=== PATIENT | female | born 1955 | race Caucasian/White ===

== ENCOUNTER → 2017-01-27 | Day surgery (SDC) | payer OTHER ==
--- NOTE | 2017-01-15 14:29 | HP ---
HISTORY OF PRESENT ILLNESS: Ms. Ovalle is a 60-year-old woman who presents for evaluation in o ur clinic with bilateral lower extremity radiculopathy, a handful of different patterns, and also hamlin ffers from a great deal of midline low back pain. We have evaluated this with her before. She has attempted conservative treatments that have yet to work. She returns now to discuss possible treatm ent options. She is yet to have any imaging. PAST MEDICAL HISTORY: Diabetes, stroke, obesity, headache, atrial fibrillation, glaucoma, sleep director design ea, hiatal hernia and dyspnea. PAST SURGICAL HISTORY: Hysterectomy, cholecystectomy, heart monitor, right shoulder surgery, left s houlder surgery, left knee, tubal ligation, right total knee replacement. CURRENT MEDICATIONS: Spironolactone, aspirin, metformin, Victoza, vitamin D, cetirizine, sertraline , Fosamax, atenolol, Enablex, pantoprazole, clopidogrel, pravastatin, lisinopril, Ropinirole, Choles tyramine, Spiriva, Advair, ipratropium bromide, albuterol, Protonix, Bactrim, Crestor, Nexium, carve dilol, oxybutynin, Lasix. ALLERGIES: PREDNISONE, DOXYCYCLINE, MAGNESIUM, CLINDAMYCIN, and ADHESIVES. PHYSICAL EXAMINATION: NEUROLOGIC: Patient is alert and oriented x3. Gait is severely antalgic. Lower extremity motor ex am is normal. She has a sensory disturbance in the upper buttocks bilaterally. ASSESSMENT: Lumbar radiculopathy and lumbar back pain. PLAN: At this time, I would like to obtain a CT myelogram of the lumbar spine and then have her yadi k to review afterwards.
[2017-01-20 08:12] VITALS: BMI 45.5
[~2017-01-27] MED LIST: FLU VACC QS2017-18 36 mo. & older 0.5 ML SYRINGE IM ONE; Iopamidol-M 300 61% 15 ML VIAL ONE
[2017-01-27 07:24] VITALS: TEMP 97.6
--- NOTE | 2017-01-27 09:19 | RAD ---
THORACIC SPINE MYELOGRAM: LUMBAR SPINE MYELOGRAM: 01/27/2017 HISTORY: Radiculopathy. FINDINGS: Informed consent for myelogram obtained prior to the procedure. Aircraft Instrument Tester frontal and lateral imaging of the thoracic spine and lumbar spine provided. Anterior diskect manas and fusion hardware is present at C5-C6/C6-C7. Thoracic spine imaging demonstrates multilevel d isk space narrowing, most prominent in the upper to mid thoracic spine, with associated anterior ost eophyte formation. A loop recorder overlies the left chest wall. Clips in the right upper quadrant are noted, suggesting a prior cholecystectomy. Imaging of the lum bar spine demonstrates multilevel disk space narrowing and anterior osteophyte formation. No kell listhesis or retrolisthesis is seen. The patient was placed in the oblique prone position on the fluoroscopic table, and the skin overlyi ng the lumbar spine was prepped and draped in the normal sterile fashion. The skin overlying the L3 -L4 region was anesthetized with 1% buffered Lidocaine. With intermittent fluoroscopic guidance, a 20 gauge spinal needle was advanced into the thecal sac and removal of the stylet yielded clear cere brospinal fluid. Subsequently, approximately 12 mL of Isovue 240 was injected, outlining to the cauda equina and filling the thecal sac. The needle was removed. The patient's head was tilte d down, to extend contrast media into the thoracic region. The patient tolerated the procedure well . The patient was sent to the CT scanner for a CT myelogram of the thoracic and lumbar spine to fol low. IMPRESSION: 1. Successful thoracic spine and lumbar spine myelogram. 2. Degenerative and postoperative changes, as detailed above. POS: [facility]
--- NOTE | 2017-01-27 10:24 | CT ---
CT MYELOGRAM THORACIC SPINE: 01/27/2017 HISTORY: Thoracic pain and radiculopathy. COMPARISON: None. TECHNIQUE: Following the intrathecal administration of iodinated contrast media, axial CT imaging is obtained a t 3.75 mm intervals, from the cervicothoracic junction through the upper lumbar spine. Coronal and sagittal reformatted imaging obtained. FINDINGS: Incompletely imaged anterior diskectomy and fusion hardware is present at the C6-C7 level. There is good opacification of the thecal sac. The thoracic cord demonstrates normal location and c aliber. There is no anterolisthesis or retrolisthesis noted within the thoracic spine. There is no central canal stenosis within the thoracic spine. C7-T1: No central canal or neural foraminal stenosis. T1-T2: No central canal or neural foraminal stenosis. T2-T3: Mild anterior osteophyte formation. T4-T5: Mild anterior osteophyte formation. T5-T6: Mild right facet hypertrophy with mild right neural foraminal stenosis. : Anterior osteophytes formation noted, right of midline. No osseous cause of significant c entral anal or neural foraminal stenosis. T6-T7: There is disk space narrowing and anterior osteophyte formation. No osseous cause of signif icant central canal or neural foraminal stenosis. T7-T8: Disk space narrowing and anterior osteophyte formation. No osseous cause of significant dante tral canal or neural foraminal stenosis. T8-T9: There is disk space narrowing and anterior osteophyte formation with no osseous cause of sig nificant central canal or neural foraminal stenosis. T9-T10: Disk space narrowing and anterior osteophyte formation. No osseous cause of significant ce ntral canal or neural foraminal stenosis. T10-T11: Disk space narrowing and anterior osteophyte formation noted. Mild right facet hypertroph y with no significant central canal or neural foraminal stenosis. T11-T12: Disk space narrowing and anterior osteophyte formation with no significant central canal o r neural foraminal stenosis. Lateral vacuum disk noted on the right. T12-L1: No osseous cause of significant central canal or neural foraminal stenosis. No acute osseo us abnormality. The imaged lung parenchyma appears grossly unremarkable. IMPRESSION: Multilevel disk space narrowing and anterior osteophyte formation with no significant central canal or neural foraminal stenosis seen within the thoracic spine. POS: [facility]
--- NOTE | 2017-01-27 11:14 | CT ---
LUMBAR SPINE CT MYELOGRAM: 01/27/2017 HISTORY: Pain and lumbar radiculopathy. COMPARISON: 06/30/2011 TECHNIQUE: Following the intrathecal administration of iodinated contrast media, axial CT imaging at 2.5 mm int ervals obtained from the lower thoracic spine through the inferior aspect of the sacrum. Coronal an d sagittal reformatted imaging obtained. FINDINGS: The imaged nonosseous structures appear grossly unremarkable. There are moderate degenerative nogueira es involving the bilateral sacroiliac joints. The conus medullaris terminates at the L1-L2 level. T12-L1: There is bilateral facet hypertrophy and anterior osteophyte formation with no significant central canal or neural foraminal stenosis. L1-L2: There is disk space narrowing and mild disk bulge. There is anterior osteophyte formation a nd mild bilateral facet hypertrophy with no significant central canal or neural foraminal stenosis. L2-L3: There is anterior osteophyte formation and bilateral facet hypertrophy with no significant c entral canal or neural foraminal stenosis. L3-L4: Mild bilateral facet hypertrophy and hypertrophy of the ligamentum flavum. Mild bilateral n eural foraminal stenosis. No significant central canal stenosis. L4-L5: Bilateral facet hypertrophy and hypertrophy of the ligamentum flavum noted. Mild/moderate b ilateral neural foraminal stenosis, left greater than right. No significant central canal stenosis. L5-S1: Mild bilateral facet hypertrophy with no significant central canal o neural foraminal stenos is. No acute fracture. No worrisome lytic or blastic bone lesion. IMPRESSION: 1. Degenerative changes within the lumbar spine. 2. No significant central canal stenosis. 3. Lower lumbar spine facet disease and associated neural foraminal stenosis, as described above. POS: [facility]
== END ==
LOC: RAD 06:46
PROVIDERS: ATTEND Neurological Surgery
PROC: B01B1ZZ Fluoroscopy of Spinal Cord using Low Osmolar Contrast (ICD-10-PCS; principal; 2017-01-27)
DX: M54.16 Radiculopathy, lumbar region (principal); E11.9 Type 2 diabetes mellitus without complications; I48.91 Unspecified atrial fibrillation; H40.9 Unspecified glaucoma; G47.30 Sleep apnea, unspecified; Z98.890 Other specified postprocedural states; E66.9 Obesity, unspecified; Z68.42 Body mass index [BMI] 45.0-49.9, adult; Z88.1 Allergy status to other antibiotic agents; Z88.8 Allergy status to other drugs, medicaments and biological substances; Z91.048 Other nonmedicinal substance allergy status; Z79.82 Long term (current) use of aspirin; Z79.84 Long term (current) use of oral hypoglycemic drugs; Z79.899 Other long term (current) drug therapy; Z90.710 Acquired absence of both cervix and uterus; Z90.49 Acquired absence of other specified parts of digestive tract; Z96.651 Presence of right artificial knee joint; Z87.891 Personal history of nicotine dependence; Z86.73 Personal history of transient ischemic attack (TIA), and cerebral infarction without residual deficits
CPT/HCPCS: 62305; 72129; 72132

== ENCOUNTER 2017-01-29 10:38 | Emergency (ER) | payer OTHER | END 2017-01-29 14:41 | disposition left against medical advice (07) | LOC: ERS 10:38 | DX: Z53.21 Procedure and treatment not carried out due to patient leaving prior to being seen by health care provider (principal) ==

== ENCOUNTER 2017-06-04 07:27 | Day surgery (SDC) | payer OTHER ==
[2017-06-03 10:01] VITALS: BMI 48.6
--- NOTE | 2017-06-04 16:47 | OP ---
DATE OF PROCEDURE: 06/04/2017 PREOPERATIVE DIAGNOSIS: Dysphagia. OPERATIVE NOTE: Informed consent was obtained from the patient. She was sedated with total intraven ous anesthesia. The bite block was placed and the endoscope was advanced easily to the second portio n of the duodenum and retroflexion was performed in the stomach. The esophagus appeared normal overa ll. An 18 mm Savary dilator was passed over a guidewire and this did create a very small tear in the proximal esophagus. The stomach had 8-10 mm gastric polyps, which were biopsied. These appeared be nign and are likely hyperplastic polyps. Retroflexed views in the stomach were normal. The pylorus and first and second portions of the duodenum were normal. IMPRESSION: 1. Slight upper esophageal stricture dilated to 18 mm with a Savary dilator over a guidewire. There was a slight tear at the dilation site. 2. 8-10 mm gastric antral polyps biopsied. These are likely hyperplastic or less likely fundic glan d polyps. 3. Otherwise normal esophagogastroduodenoscopy. RECOMMENDATIONS: 1. Await histopathology. 2. Proton pump inhibitor daily. 3. Follow up in GI clinic in 2-4 weeks. 4. The gastric biopsies should not require further intervention unless adenomatous changes are ident ified.
== END 2017-06-04 11:30 | disposition home or self-care (01) ==
LOC: SDC 07:27
PROVIDERS: ATTEND Internal Medicine Gastroenterology
PROC: 0D758ZZ Dilation of Esophagus, Via Natural or Artificial Opening Endoscopic (ICD-10-PCS; principal; 2017-06-04)
PROC: 0DB68ZX Excision of Stomach, Via Natural or Artificial Opening Endoscopic, Diagnostic (ICD-10-PCS; principal; 2017-06-04)
PROC: 0DB58ZX Excision of Esophagus, Via Natural or Artificial Opening Endoscopic, Diagnostic (ICD-10-PCS; principal; 2017-06-04)
DX: K20.9 Esophagitis, unspecified (principal); K31.7 Polyp of stomach and duodenum; K22.2 Esophageal obstruction; I10 Essential (primary) hypertension; G47.30 Sleep apnea, unspecified; M19.90 Unspecified osteoarthritis, unspecified site; E11.9 Type 2 diabetes mellitus without complications; E78.5 Hyperlipidemia, unspecified; E66.9 Obesity, unspecified; Z68.42 Body mass index [BMI] 45.0-49.9, adult; Z88.1 Allergy status to other antibiotic agents; Z91.048 Other nonmedicinal substance allergy status; Z88.8 Allergy status to other drugs, medicaments and biological substances; Z98.890 Other specified postprocedural states
CPT/HCPCS: 88305; 88312; 88313

== ENCOUNTER 2017-07-19 08:24 | Outpatient (CLI) | payer OTHER ==
--- NOTE | 2017-07-20 14:26 | RAD ---
MODIFIED BARIUM SWALLOW: History: Dysphagia. Difficulty swallowing. FINDINGS: Exam was performed by speech pathology with multiple consistencies. Video review is available and dem onstrates good bolus formation and retropulsion. There is good initiation of swallowing. Flash penetr ation is demonstrated with some consistencies. No kae aspiration is apparent. Moderate pooling with the vallecula and pyriform sinuses. Contrast is held beneath the tongue. Indentation upon the posterior aspect of the upper esophagus is very mild and has the appearance of o rthopedic hardware. No evidence of obstruction. The esophagus below the level of the hypopharynx was not visualized. Fluoro time = 20 seconds. Please separate detailed report by speech pathology. POS: [facility]
== END 2017-07-19 08:25 | disposition home or self-care (01) ==
PROVIDERS: ATTEND Internal Medicine Gastroenterology
DX: R13.12 Dysphagia, oropharyngeal phase (principal); K21.9 Gastro-esophageal reflux disease without esophagitis
CPT/HCPCS: 74230; G8996-GN-CI; G8997-GN-CI; G8998-GN-CI

== ENCOUNTER 2017-12-01 11:30 | Inpatient (IN) | payer OTHER ==
[2017-12-09] MEDS ORDERED: Sodium Chloride 0.9% 100 ML ONE (06:12)
[2017-12-09] MEDS ORDERED: CEFAZOLIN/Water 2 GM/20 ML SYRINGE ONE (06:12)
[2017-12-09] MEDS ORDERED: Fentanyl 100 MCG/2 ML VIAL ONE ×2 (06:38→10:00)
[2017-12-09] MEDS ORDERED: Midazolam HCl 2 mg/2 ml Vial ONE (06:38)
[2017-12-09] MEDS ORDERED: Furosemide 20 MG TAB PO PRN (06:56)
[2017-12-09] MEDS ORDERED: traMADol HCl 50 MG TAB PO PRN ×4 (06:57→07:23)
[2017-12-09] MEDS ORDERED: Ondansetron HCl/PF 4 MG/2 ML Vial IVP PRN ×2 (07:23→09:47)
[2017-12-09] MEDS ORDERED: Ropivacaine 0.2% 550 ML 550 ML NERVE BLCK SCH (07:23)
[2017-12-09] MEDS ORDERED: HYDROcodone/Acetaminophen 10/325 mg Tablet PO PRN (07:23)
[2017-12-09] MEDS ORDERED: Promethazine HCl 25 MG/ML VIAL IM PRN ×2 (07:23→09:47)
[2017-12-09] MEDS ORDERED: Ketorolac Tromethamine 30 MG/ML VIAL IVP PRN (07:23)
[2017-12-09] MEDS ORDERED: Zolpidem Tartrate 5 MG TAB PO PRN (07:23)
[2017-12-09] MEDS ORDERED: Fentanyl 100 MCG/2 ML VIAL IV PRN (07:24)
[2017-12-09] MEDS ORDERED: Loratadine 10 MG TAB PO PRN (07:45)
[2017-12-09] MEDS ORDERED: Spironolactone 25 MG TAB PO SCH ×3 (08:00→14:45)
[2017-12-09] MEDS ORDERED: Promethazine HCl 25 MG/ML VIAL SLOW IVP PRN (09:47)
--- NOTE | 2017-12-09 11:00 | OP ---
DATE OF PROCEDURE: 12/09/2017 PREOPERATIVE DIAGNOSIS: Rotator cuff arthropathy, right shoulder. POSTOPERATIVE DIAGNOSES: Rotator cuff arthropathy, right shoulder. PROCEDURE:Reverse Total Shoulder, screw removal, Biceps tenotomy. SURGEON: Efra Cary M.D. SENIOR LEAD JAVA DEVELOPER: Logan Orr PA-C. BLOOD LOSS: 150 mL. SPECIMEN: None. DRAINS: None. COMPLICATIONS: None. IMPLANTS USED: Right Tornier flexed 3B stem, a +0 high offset metaphysis with a +6 poly, 25 mm baseplate and 4 screws. NARRATIVE REPORT: The patient was taken to the operating where general anesthesia induced. The patient was placed in a beach chair position. After prepping and draping and receiving vancomycin and Ancef, a standard deltopectoral approach was made. Dissection carried down to the conjoint tendon which was retracted medially. I retracted the subscapularis after sizing it off the bone. The humeral head was cut and a screw was removed from the proximal humerus. The biceps tendon was very attenuated and I just ended up doing a biceps tenodesis. The humerus was prepared up to 3B stem with the implants as shown then exposed the glenoid circumferentially, tried to keep my central lug hole a little bit inferior and try to create a little bit of inferior tilt for it as well as I reamed and the baseplate was inserted with excellent technique with great purchase with the screws. The glenosphere was deployed without difficulty. The humerus trial was removed. Irrigation was performed. I placed a cottony Dacron sutures through the humerus. I then implanted the permanent implant. The shoulder was reduced with good stability throughout a range of motion, repaired the subscapularis back to bone with cottony Dacron suture. There was no rotator cuff to repair. Irrigation was performed. Deltoid was repaired with 0 Vicryl, subcu with 2-0 Vicryl, and the skin was closed with jones. Sterile dressings applied. SHEREE
[2017-12-09] MEDS: Sodium Chloride 0.9% 1,000 ML IV SCH (11:43)
[2017-12-09] MEDS: metFORMIN 500 MG TAB PO SCH ×2 (11:44→17:18)
[2017-12-09] MEDS: Atenolol 25 MG TAB PO SCH (17:02)
[2017-12-09] MEDS: Aspirin 81 mg Enteric Coated Tablet PO SCH (17:03)
[2017-12-09] MEDS: CEFAZOLIN/Water 2 GM/20 ML SYRINGE SLOW IVP SCH (17:08)
[2017-12-09] MEDS: Spironolactone 25 MG TAB PO SCH (17:18)
[2017-12-09] MEDS ORDERED: Vancomycin HCl 1.5 GM in Sodium Chloride 0.9% 250 ML 300 ML IVPB SCH (18:00)
[2017-12-09 18:47] VITALS: BMI 50.8
[2017-12-09] MEDS ORDERED: Atorvastatin Calcium 10 MG TAB PO SCH (21:00)
[2017-12-09] MEDS: Oxybutynin 5 MG TAB PO SCH (21:03)
[2017-12-10] MEDS: Sodium Chloride 0.9% 1,000 ML IV SCH (00:07)
[2017-12-10] MEDS: CEFAZOLIN/Water 2 GM/20 ML SYRINGE SLOW IVP SCH (00:08)
[2017-12-10] MEDS: HYDROcodone/Acetaminophen 10/325 mg Tablet PO PRN ×2 (00:24→08:09)
[2017-12-10] MEDS: Atenolol 25 MG TAB PO SCH (08:07)
[2017-12-10] MEDS: Spironolactone 25 MG TAB PO SCH (08:07)
[2017-12-10] MEDS: Oxybutynin 5 MG TAB PO SCH (08:08)
[2017-12-10] MEDS: Aspirin 81 mg Enteric Coated Tablet PO SCH (08:09)
[2017-12-10] MEDS: metFORMIN 500 MG TAB PO SCH (08:09)
[2017-12-10] MEDS ORDERED: Enoxaparin Sodium 30 MG/0.3 ML SYRINGE SC SCH (09:00)
--- NOTE | 2017-12-10 09:42 | PDOC.PN ---
- Subjective Encounter Start Date: 12/09/17 Encounter Start Time: 13:00 Subjective: pt up in bed no complains - Objective Vital Signs & Weight: Vital Signs (12 hours) Temp Pulse Resp BP BP Pulse Ox 12/10/17 08:07 70 124/70 12/10/17 08:00 98.3 F 73 16 124/70 92 L 12/10/17 05:01 97.9 F 70 18 114/61 94 L 12/10/17 03:08 70 16 94 L 12/10/17 00:04 98.3 F 73 20 122/76 97 Weight Weight 315 lb I&O: 12/09/17 12/10/17 12/11/17 06:59 06:59 06:59 Intake Total 2270 Balance 2270 Phys Exam - Physical Examination Neck: no nodes, no JVD, supple, full ROM Respiratory: no wheezing, no rales, no rhonchi, wheezing present, clear to auscultation bilateral Cardiovascular: RRR, no significant murmur, no rub, gallop, irregular Gastrointestinal: soft, non-tender, no distention, positive bowel sounds right shoulder dressing Dx/Plan (1) HTN (hypertension) Code(s): I10 - ESSENTIAL (PRIMARY) HYPERTENSION Status: Chronic (2) Diabetes Code(s): E11.9 - TYPE 2 DIABETES MELLITUS WITHOUT COMPLICATIONS Status: Chronic (3) Sleep apnea Code(s): G47.30 - SLEEP APNEA, UNSPECIFIED Status: Chronic - Plan will put holding parameters on her bp meds -: will order her a cpap machine since she did not bring her own. -: will order sliding scale insulin * . Review of Systems - Review of Systems Respiratory: negative: Cough, Dry, Shortness of Breath, Hemoptysis, SOB with Excertion, Pleuritic Pain, Sputum, Wheezing Cardiovascular: negative: chest pain, palpitations, orthopnea, paroxysmal nocturnal dyspnea, edema, light headedness, other Gastrointestinal: negative: Nausea, Vomiting, Abdominal Pain, Diarrhea, Constipation, Melena, Hematochezia, Other Genitourinary: negative: Dysuria, Frequency, Incontinence, Hematuria, Retention , Other - Medications/Allergies Allergies/Adverse Reactions: Allergies Allergy/AdvReac Type Severity Reaction Status Date / Time adhesive Allergy Intermediate Rash Verified 12/01/17 10:55 clindamycin Allergy Verified 12/01/17 10:55 doxycycline Allergy Rash Verified 12/01/17 10:55 magnesium Allergy Headache Verified 12/01/17 10:55 prednisone Allergy Short of Verified 12/01/17 10:55 Breath Medications: Current Medications Hydrocodone Bitart/Acetaminophen ([place] 10/325) 1 tab PO Q4H PRN PRN Reason: Pain (1-3) Hydrocodone Bitart/Acetaminophen ([place] 10/325) 2 tab PO Q4H PRN PRN Reason: PAIN (4-6) Last Admin: 12/10/17 08:09 Dose: 2 tab Aspirin (Ecotrin) 81 mg PO DAILY [facility] Last Admin: 12/10/17 08:09 Dose: 81 mg Atenolol (Tenormin) 25 mg PO QAM [facility] Last Admin: 12/10/17 08:07 Dose: 25 mg Atorvastatin Calcium (Lipitor) 10 mg PO HS [facility] Last Admin: 12/09/17 21:03 Dose: 10 mg Cholecalciferol (Vitamin D3) 1,000 units PO DAILY [facility] Last Admin: 12/10/17 08:08 Dose: 1,000 units Enoxaparin Sodium (Lovenox) 30 mg SC 0900 [facility] Last Admin: 12/10/17 08:10 Dose: 30 mg Fentanyl (Sublimaze) 50 mcg IV Q1H PRN PRN Reason: BREAKTHROUGH PAIN Furosemide (Lasix) 20 mg PO PRN PRN PRN Reason: LEG SWELLING Sodium Chloride (Normal Saline 0.9%) 1,000 mls @ 65 mls/hr IV .[id number] [facility] Last Admin: 12/10/17 00:07 Dose: 1,000 mls Ropivacaine (Ropivacaine 0.2% 550 Ml) 550 mls @ 0 mls/hr NERVE BLCK INF [facility] Ketorolac Tromethamine (Toradol) 30 mg IVP Q6H PRN PRN Reason: Moderate Pain (4-6) Stop: 12/12/17 07:24 Last Admin: 12/09/17 22:37 Dose: 30 mg Loratadine (Claritin) 10 mg PO DAILYPRN PRN PRN Reason: ALLERGIES Metformin HCl (Glucophage) 1,000 mg PO BID-[facility] Last Admin: 12/10/17 08:09 Dose: 1,000 mg (Canagliflozin [ (Invokana] 100 Mg)) [facility] [place] Ondansetron HCl (Zofran) 4 mg IVP Q6H PRN PRN Reason: Nausea/Vomiting Oxybutynin Chloride (Ditropan) 5 mg PO BID [facility] Last Admin: 12/10/17 08:08 Dose: 5 mg Pantoprazole Sodium (Protonix) 40 [facility] [place] Last Admin: 12/10/17 08:09 Dose: 40 mg Promethazine HCl (Phenergan) 12.5 mg IM Q4H PRN PRN Reason: Nausea Sodium Chloride (Flush - Normal Saline) 10 ml IVF PRN PRN PRN Reason: Saline Flush Spironolactone (Aldactone) 50 mg PO BID-[facility] Last Admin: 12/10/17 08:07 Dose: 50 mg Tramadol HCl (Ultram) 50 mg PO Q6H PRN PRN Reason: Mild Pain (1-3) Tramadol HCl (Ultram) 100 mg PO Q6H PRN PRN Reason: Moderate Pain 4-6 Last Admin: 12/09/17 21:01 Dose: 100 mg Zolpidem Tartrate (Ambien) 5 mg PO HSPRN PRN PRN Reason: Insomnia
[2017-12-10] MEDS ORDERED: Dextrose 5% in Water 1,000 ML IV PRN (09:43)
[2017-12-10] MEDS ORDERED: HumaLOG 300 UNITS/3 ML VIAL SC PRN (09:43)
[2017-12-10] MEDS ORDERED: Dextrose 50% Abboject 50 ML SYRINGE SLOW IVP PRN (09:43)
[2017-12-10 11:31] VITALS: BP 130/78; TEMP 97.7
== END 2017-12-10 14:08 | disposition home or self-care (01) | DRG 483 ==
LOC: INTOOBSV 12-09 05:38 → OBSVTOIN 12-09 05:38 → SURG A 12-09 05:38 → SJJU 12-09 11:27
PROVIDERS: ADMIT Orthopaedic Surgery; ATTEND Orthopaedic Surgery
PROC: 0RRJ00Z Replacement of Right Shoulder Joint with Reverse Ball and Socket Synthetic Substitute, Open Approach (ICD-10-PCS; principal; 2017-12-09)
PROC: 0LS30ZZ Reposition Right Upper Arm Tendon, Open Approach (ICD-10-PCS; 2017-12-09)
DX: M12.811 Other specific arthropathies, not elsewhere classified, right shoulder (principal); I10 Essential (primary) hypertension; E11.9 Type 2 diabetes mellitus without complications; G47.30 Sleep apnea, unspecified
CPT/HCPCS: 36416; 94660; 96374; A4306; G8984-GP-CN; G8985-GP-CN; G8986-GP-CN; G8987-GO-CJ; G8988-GO-CI; J1650; J1885; J2250; J2795; J3010; J3370; J7050

== ENCOUNTER 2017-12-13 11:07 | Emergency (ER) | payer OTHER ==
[2017-12-13 12:44] LABS: #Basophils 0.1 thou/uL (0.0-0.2); #Eosinphils 0.3 thou/uL (0.0-0.7); #Lymphocytes 1.5 thou/uL (1.20-3.40); #Monocytes 0.5 thou/uL (0.11-0.59); #Neutrophils 7.4 thou/uL (1.40-6.50); %Basophils 0.6 % (0.0-1.0); %Eosinophils 3.1 % (0.0-10.0); %Lymphocytes 15.2 % (21.0-51.0); %Monocytes 4.6 % (0.0-10.0); %Neutrophils 76.5 % (42.0-75.0); Hemoglobin 12.6 g/dL (12.0-16.0); Mean Corpuscular HGB CONC 31.5 g/dL (32.0-36.0); Mean Corpuscular Hemoglobin 29.2 pg (27.0-31.0); Mean Corpuscular Volume 92.5 fL (78.0-98.0); Mean Platelet Volume 7.8 fL (7.4-10.4); Platelet Count 279 thou/uL (130-400); RBC Distribution Width 13.6 % (11.5-14.5); Red Blood Cell (RBC) Count 4.32 mill/uL (4.20-5.40); White Blood Cell (WBC) Count 9.7 thou/uL (4.8-10.8)
[2017-12-13 13:04] LABS: ALT (SGPT) 11 U/L (8-55); AST (SGOT) 15 U/L (5-34); Albumin 3.8 g/dL (3.5-5.0); Alkaline Phosphatase 144 U/L (40-150); Anion Gap 14 mmol/L (10-20); BUN (Urea Nitrogen) 12 mg/dL (9.8-20.1); Bilirubin, Total 0.6 mg/dL (0.2-1.2); Calc. Creatinine Clearance 0 mL/min (70-130); Calcium 9.1 mg/dL (7.8-10.44); Carbon Dioxide 23 mmol/L (22-29); Chloride 103 mmol/L (98-107); Estimated GFR-MDRD 51; Globulin 3.4 g/dL (2.4-3.5); Glucose 153 mg/dL (70-105); Potassium 4.4 mmol/L (3.5-5.1); Protein, Total 7.2 g/dL (6.0-8.3); Sodium 136 mmol/L (136-145)
[2017-12-13 13:07] LABS: CKMB 0.8 ng/mL (0-6.6); Troponin I Less than 0.010 ng/mL (< 0.028)
--- NOTE | 2017-12-13 13:43 | RAD ---
CHEST 1 VIEW: Date: 12/13/17 HISTORY: Dyspnea. COMPARISON: Radiograph from prior day. FINDINGS: Lungs without focal confluent air space consolidation, pneumothorax, or effusion. Cardiac silhouette and mediastinal contours similar. IMPRESSION: No confluent air space consolidation. POS: [facility]
--- NOTE | 2017-12-18 16:35 | EKG ---
Test Reason : Blood Pressure : / mmHG Vent. Rate : 069 BPM Atrial Rate : 069 BPM P-R Int : 172 ms QRS Dur : 076 ms QT Int : 404 ms P-R-T Axes : 026 -10 008 degrees QTc Int : 432 ms Normal sinus rhythm Inferior infarct , age undetermined Abnormal ECG Confirmed by CANDI BARKSDALE ([id number]), editor book BREN WALSH ([id number]) on 12/18/2017 4:35:06 PM Referred By: Confirmed By:CANDI BARKSDALE
== END 2017-12-13 13:41 | disposition home or self-care (01) ==
LOC: ERS 11:07
DX: R06.02 Shortness of breath (principal); I10 Essential (primary) hypertension; Z86.73 Personal history of transient ischemic attack (TIA), and cerebral infarction without residual deficits; E11.9 Type 2 diabetes mellitus without complications; Z87.891 Personal history of nicotine dependence; Z79.899 Other long term (current) drug therapy; Z79.82 Long term (current) use of aspirin; Z79.4 Long term (current) use of insulin
CPT/HCPCS: 71045; 80053; 82553; 83880; 84484; 85025; 93005

== ENCOUNTER 2018-05-22 22:57 | Emergency (ER) | payer OTHER ==
[2018-05-23] MEDS ORDERED: Aspirin Chewable 81 MG TAB ONE (00:48)
[2018-05-23 01:04] LABS: #Basophils 0.1 thou/uL (0.0-0.2); #Eosinphils 0.3 thou/uL (0.0-0.7); #Lymphocytes 1.9 thou/uL (1.20-3.40); #Monocytes 0.4 thou/uL (0.11-0.59); #Neutrophils 6.7 thou/uL (1.40-6.50); %Basophils 0.8 % (0.0-1.0); %Eosinophils 3.2 % (0.0-10.0); %Lymphocytes 20.2 % (21.0-51.0); %Monocytes 4.3 % (0.0-10.0); %Neutrophils 71.7 % (42.0-75.0); Hemoglobin 13.8 g/dL (12.0-16.0); Mean Corpuscular HGB CONC 32.2 g/dL (32.0-36.0); Mean Corpuscular Hemoglobin 30.3 pg (27.0-31.0); Mean Platelet Volume 7.5 fL (7.4-10.4); Platelet Count 221 thou/uL (130-400); RBC Distribution Width 13.9 % (11.5-14.5); Red Blood Cell (RBC) Count 4.55 mill/uL (4.20-5.40); White Blood Cell (WBC) Count 9.3 thou/uL (4.8-10.8)
[2018-05-23 01:24] LABS: ALT (SGPT) 17 U/L (8-55); AST (SGOT) 18 U/L (5-34); Alkaline Phosphatase 155 U/L (40-150); Anion Gap 14 mmol/L (10-20); BUN (Urea Nitrogen) 19 mg/dL (9.8-20.1); Bilirubin, Total 0.4 mg/dL (0.2-1.2); Calc. Creatinine Clearance 0 mL/min (70-130); Calcium 9.4 mg/dL (7.8-10.44); Carbon Dioxide 24 mmol/L (22-29); Chloride 103 mmol/L (98-107); Estimated GFR-MDRD 49; Globulin 3.5 g/dL (2.4-3.5); Glucose 269 mg/dL (70-105); Lipase 18 U/L (8-78); Potassium 4.1 mmol/L (3.5-5.1); Protein, Total 7.5 g/dL (6.0-8.3); Sodium 137 mmol/L (136-145)
--- NOTE | 2018-05-23 06:00 | RAD ---
CHEST ONE VIEW: INDICATIONS: Low blood pressure. COMPARISON: 05/12/2018 FINDINGS: The port overlying the left chest wall is stable. Heart size is normal. The lungs are clear. No pl eural effusion or pneumothorax is evident. No acute osseous abnormality is evident. IMPRESSION: No acute abnormality. POS: [facility]
== END 2018-05-23 02:51 | disposition home or self-care (01) ==
LOC: ERS 22:57
DX: R07.89 Other chest pain (principal); R51 Headache; G47.30 Sleep apnea, unspecified; E11.9 Type 2 diabetes mellitus without complications; M19.90 Unspecified osteoarthritis, unspecified site; I10 Essential (primary) hypertension; Z86.73 Personal history of transient ischemic attack (TIA), and cerebral infarction without residual deficits; Z87.891 Personal history of nicotine dependence; Z79.4 Long term (current) use of insulin; Z79.82 Long term (current) use of aspirin; Z79.899 Other long term (current) drug therapy
CPT/HCPCS: 71045; 80053; 83690; 84484; 85025; 85379; 93005; 94760

== ENCOUNTER 2018-05-31 19:28 | Observation (INO) | payer OTHER ==
--- NOTE | 2018-05-31 20:10 | RAD ---
CHEST ONE VIEW: 05/31/18 COMPARISON: 05/27/18 HISTORY: Chest pain and shortness of breath. FINDINGS: Normal cardiac silhouette. Pulmonary vessels and hilum are normal. Costophrenic angles are clear. No masses or consolidation. No pneumothorax or osseous abnormalities. IMPRESSION: No acute cardiopulmonary process. POS: [facility]
[2018-05-31 20:22] LABS: #Eosinphils 0.3 thou/uL (0.0-0.7); #Lymphocytes 1.7 thou/uL (1.20-3.40); #Monocytes 0.4 thou/uL (0.11-0.59); #Neutrophils 4.9 thou/uL (1.40-6.50); %Basophils 0.5 % (0.0-1.0); %Eosinophils 3.6 % (0.0-10.0); %Lymphocytes 23.3 % (21.0-51.0); %Neutrophils 66.7 % (42.0-75.0); Hemoglobin 12.6 g/dL (12.0-16.0); Mean Corpuscular HGB CONC 32.4 g/dL (32.0-36.0); Mean Corpuscular Hemoglobin 30.5 pg (27.0-31.0); Mean Corpuscular Volume 94.1 fL (78.0-98.0); Mean Platelet Volume 7.6 fL (7.4-10.4); Platelet Count 206 thou/uL (130-400); Red Blood Cell (RBC) Count 4.14 mill/uL (4.20-5.40); White Blood Cell (WBC) Count 7.3 thou/uL (4.8-10.8)
[2018-05-31 20:44] LABS: ALT (SGPT) 14 U/L (8-55); AST (SGOT) 13 U/L (5-34); Albumin 3.6 g/dL (3.5-5.0); Alkaline Phosphatase 129 U/L (40-150); Anion Gap 12 mmol/L (10-20); BUN (Urea Nitrogen) 16 mg/dL (9.8-20.1); Bilirubin, Total 0.4 mg/dL (0.2-1.2); Calc. Creatinine Clearance 0 mL/min (70-130); Calcium 9.2 mg/dL (7.8-10.44); Carbon Dioxide 25 mmol/L (22-29); Chloride 106 mmol/L (98-107); Estimated GFR-MDRD 51; Glucose 188 mg/dL (70-105); Potassium 4.1 mmol/L (3.5-5.1); Protein, Total 6.6 g/dL (6.0-8.3); Sodium 139 mmol/L (136-145)
[2018-05-31] MEDS ORDERED: diphenhydrAMINE 25 MG CAP ONE (22:27)
[2018-06-01 00:01] LABS: Troponin I Less than 0.010 ng/mL (< 0.028)
[2018-06-01 00:22] VITALS: BMI 52.3
[2018-06-01 02:47] LABS: Troponin I Less than 0.010 ng/mL (< 0.028)
[2018-06-01] MEDS ORDERED: Furosemide 20 MG TAB PO PRN (07:59)
[2018-06-01] MEDS ORDERED: HumaLOG 300 UNITS/3 ML VIAL SC PRN ×2 (08:01)
[2018-06-01] MEDS ORDERED: Dextrose 50% Abboject 50 ML SYRINGE SLOW IVP PRN (08:01)
[2018-06-01] MEDS ORDERED: Dextrose 5% in Water 1,000 ML IV PRN (08:01)
[2018-06-01] MEDS: Spironolactone 25 MG TAB PO SCH (08:59)
[2018-06-01] MEDS: metFORMIN 500 MG TAB PO SCH ×2 (08:59→17:03)
[2018-06-01] MEDS: Oxybutynin 5 MG TAB PO SCH ×2 (09:00→20:32)
[2018-06-01] MEDS: Aspirin 81 mg Enteric Coated Tablet PO SCH (09:00)
[2018-06-01] MEDS ORDERED: SPIRONOLACTONE 25 MG PO SCH (09:00)
[2018-06-01] MEDS: Clopidogrel Bisulfate 75 MG TAB PO SCH (09:00)
[2018-06-01] MEDS: Atenolol 25 MG TAB PO SCH (09:00)
[2018-06-01] MEDS ORDERED: INSULIN LISPRO FS SCH (09:30)
--- NOTE | 2018-06-01 11:50 | ULT ---
BILATERAL LOWER EXTREMITY VENOUS ULTRASOUND: HISTORY: Lower extremity pain. TECHNIQUE: Multiplanar josue-scale and color Doppler images were obtained in a bilateral lower extremity venous u ltrasound. Spectral analysis of the Doppler waveforms was performed. FINDINGS: The bilateral common femoral veins, profunda femoral veins, superficial femoral veins, and popliteal veins are normal in appearance without visible thrombus. These vessels demonstrate normal compressio n, flow, and augmentation. The posterior tibial veins and greater saphenous veins are also patent. IMPRESSION: No evidence of deep venous thrombosis. POS: [facility]
--- NOTE | 2018-06-01 12:05 | HP ---
PRIMARY CARE PHYSICIAN: Dr. Shay Mac. CHIEF COMPLAINT: Chest pain. HISTORY OF PRESENT ILLNESS: Ms. Ovalle is a 62-year-old female with past medical history of hypertension, diabetes mellitus with an insulin pump in place , multiple strokes x3 with last CVA in 2010, sleep apnea, hyperlipidemia, who presents to [facility] with chest pain, she states that this has been ongoing for the last 2 to 3 weeks. She has been seen at [facility] along with [facility] ER for this about 4 times in the past. She had been treated for upper respiratory infection and hypotension, she was stabilized and then discharged home with followup with Dr. Shay Mac. She had reported symptoms on and off over the last 2 to 3 weeks. She does report a strong family history of heart disease, which she is concerned because several family members including her grandmother had at a very young age due to heart failure. She had a cardiac stress test roughly in 2016, which was found to be normal. Otherwise, has not undergone any further cardiac workup since per the patient. Currently, she had denied any fever or chills. Denied any numbness or tingling, denies any worsening weakness other than her baseline, does report some substernal chest pain, but had denied any radiation, she had denied any shortness of breath, abdominal pain, nausea, or vomiting. She, however, did state that she has been noticing more pain in her lower extremities as of recent. She has had D-dimer checked over the last several days while being worked up in the emergency department and her D-dimer was found to be normal throughout those times. During this visit, chest x-ray was performed and showed no acute cardiopulmonary process. So far, cardiac enzymes have been less than 0.010 x3, and otherwise other lab work unremarkable. Vital signs remained stable this morning, however, it was determined that she would be admitted for her chest pain and undergo further workup for a chest pain rule out, she had been placed in the observation unit with a tele monitor in place. REVIEW OF SYSTEMS: All other systems reviewed and found to be negative unless mentioned in HPI. PAST MEDICAL HISTORY: Significant for hypertension; hyperlipidemia; diabetes mellitus type 2; previous TIAs and CVAs, last one being in 2010; sleep apnea; osteoarthritis; herniated disk; and PVCs. PAST SURGICAL HISTORY: Right shoulder replacement, thyroidectomy, partial bilateral knee surgery, hysterectomy, right shoulder surgery and left shoulder surgery x2, left elbow surgery, cholecystectomy, diskectomy, and cervical spine of July 2016. PSYCHIATRIC HISTORY: No previous psychiatric history at this time. SOCIAL HISTORY: The patient denies any alcohol, tobacco, or illicit drug use. She states she used to smoke, however, had quit about 10 years ago. KNOWN ALLERGIES: Adhesive tape, clindamycin, doxycycline, magnesium, and prednisone. CURRENT HOME MEDICATIONS: 1. Atenolol 12.5 mg oral once daily. 2. Spironolactone 25 mg oral twice daily. 3. Pravastatin 40 mg oral at bedtime. 4. Oxybutynin 5 mg oral twice daily. 5. Aspirin 81 mg once daily. 6. Metformin 1000 mg oral twice daily. 7. Protonix 40 mg oral once daily. 8. Clopidogrel 75 mg oral once daily. 9. Humalog subcutaneous insulin pump. 10. Invokana 100 mg oral once daily. 11. Furosemide 20 mg as needed for edema. 12. Vitamin D oral daily. PHYSICAL EXAMINATION: VITAL SIGNS: Blood pressure 114/54, pulse 78, respirations 16, temperature 98.4 degrees Fahrenheit, and O2 saturations 97% on room air. GENERAL: The patient is awake, alert, and oriented x3. No acute distress noted. She appears morbidly obese. HEENT: Atraumatic and normocephalic. Pupils are round and reactive to light. Extraocular muscles intact. Moist mucous membranes noted. NECK: No JVD. No bruit. Trachea midline. CARDIOVASCULAR: Positive S1 and S2. Regular rate and rhythm. No murmur auscultated. RESPIRATORY: Clear to auscultation bilaterally. No wheezes, rales, or rhonchi. ABDOMEN: Soft, nontender. Bowel sounds present. Obese. MUSCULOSKELETAL: Strength appears to be at baseline, 5+ bilaterally in upper and lower extremities. Moves all extremities equal. Positive Homans sign bilaterally. Gait not assessed. NEUROLOGIC: Cranial nerves 2 through 12 grossly intact. No focal deficits noted. Speech normal and intact. Gait not assessed. PSYCHIATRIC: Good mood and affect. LABORATORY DATA: WBC 7.3, RBC 4.14, hemoglobin 12.6, platelets 206. Sodium 139 , potassium 4.1, anion gap 12, BUN 16, creatinine 1.1. Estimated GFR 51, glucose 188. Troponin less than 0.010 x3. DIAGNOSTIC IMAGING: Chest x-ray revealed no acute cardiopulmonary process. ASSESSMENT AND PLAN: 1. Chest pain, we will rule out cardiac etiology at this time. Stress test and echocardiogram ordered. So far, serial troponins negative x3. The patient will be restarted on her home medications. 2. Lower extremity pain, the patient had a positive Homans sign on the physical exam; therefore, we will order venous Doppler of bilateral lower extremities to rule out deep venous thrombosis. 3. Hypertension. Blood pressure currently stable at this time. Continue home regimen. 4. Diabetes mellitus. Continue with Accu-Cheks and the patient's home regimen. 5. Deep venous thrombosis and gastrointestinal prophylaxis. 6. Code status. Full code. DISPOSITION: Pending further workup and clinical findings. Job ID: [id number]
[2018-06-01] MEDS ORDERED: Regadenoson 0.4 MG/5 ML SYRINGE ONE (16:30)
[2018-06-01] MEDS ORDERED: Lorazepam 0.5 MG TAB PO PRN (19:42)
[2018-06-01] MEDS ORDERED: Atorvastatin Calcium 10 MG TAB PO SCH (21:00)
[2018-06-01] MEDS ORDERED: Pravastatin Sodium 40 MG TAB PO SCH (21:00)
[2018-06-02] MEDS: Oxybutynin 5 MG TAB PO SCH (09:42)
[2018-06-02] MEDS: Atenolol 25 MG TAB PO SCH (09:42)
[2018-06-02] MEDS: Clopidogrel Bisulfate 75 MG TAB PO SCH (09:43)
[2018-06-02] MEDS: metFORMIN 500 MG TAB PO SCH (09:43)
[2018-06-02] MEDS: Aspirin 81 mg Enteric Coated Tablet PO SCH (09:43)
[2018-06-02] MEDS: Spironolactone 25 MG TAB PO SCH (09:43)
--- NOTE | 2018-06-02 12:15 | NM ---
NUCLEAR MEDICINE CARDIAC STRESS TEST WITH EJECTION FRACTION: HISTORY: Chest pain. COMPARISON: Study from 07/20/2015. TECHNIQUE: Stress and rest performed after the intravenous administration of 31 and 28 mCi Technetium 99m, respe ctively. FINDINGS: No evidence of scar or ischemia. Normal wall motion. The ejection fraction is calculated at 78%. IMPRESSION: Normal nuclear medicine cardiac stress test with ejection fraction. POS: [facility]
[2018-06-02 14:47] VITALS: BP 113/76; TEMP 97.8
--- NOTE | 2018-06-02 21:16 | CON ---
DATE OF CONSULTATION: 06/02/2018 REASON FOR CONSULTATION: Wide-complex tachycardia, history of CVA. HISTORY OF PRESENT ILLNESS: Ms. Ovalle is a 62-year-old woman with complicated past medical history quite advanced for her age. Past medical history includes hypertension, type 2 diabetes with an insulin pump in place, obstructive sleep apnea, hyperlipidemia, three prior CVAs of unknown etiology. All presenting with left-sided hemiparesis that has resolved with only residual weakness. She also has struggled with morbid obesity for years, but has managed to lose approximately 100 pounds over the past few years. Ms. Ovalle presented to the emergency room reporting chest pain, lower extremity pain, and low blood pressure. Serial troponins were collected and negative. Cardiac stress test was performed, which was not suggestive of ischemia or fixed defect. D-dimer was checked in addition to lower extremity venous duplex, which was negative and not suggestive for any deep venous thromboses. However, while she is in observation and on telemetry for monitoring, she was found to have a short run of wide-complex tachycardia. This was approximately just under 6 seconds in duration and initially was wide-complex for 45 beats before planning narrow complex tachycardia with the same cycle length. Ms. Ovalle endorses having heart racing and palpitations which she is aware of at times, but generally only lasts 4 to 6 seconds in duration before they spontaneously terminate. She has never been symptomatic with them other than being aware of her elevated heart rate and reports it feels like her heart flip-flops during these episodes. Currently, she does not have any cardiac concerns, complaints or symptoms. As mentioned, she does have residual weakness on her left side and will walk with a cane, although this could be multifactorial. She reports that she has orthopedic left knee issues as well. REVIEW OF SYSTEMS: A 12-point review of systems was conducted and is negative except that listed above in the HPI. PAST MEDICAL HISTORY: 1. Hypertension. 2. Hyperlipidemia. 3. Type 2 diabetes. 4. Three prior cerebrovascular accidents most recently in 2010, all resulting in transient left-sided hemiparesis with residual weakness. 5. Obstructive sleep apnea. 6. Osteoarthritis. 7. Herniated disc. 8. Palpitations. 9. Loop recorder implant following most recent CVA and previously followed by Dr. Hammond in [place]. FAMILY HISTORY: Positive for congestive heart failure, but negative for sudden cardiac or early-onset coronary artery disease. SOCIAL HISTORY: , lives at home. Remote history of tobacco use, but quit over 10 years ago. Currently negative for alcohol, tobacco, or illicit drug use. ALLERGIES: ADHESIVE TAPE, CLINDAMYCIN, DOXYCYCLINE, MAGNESIUM, AND PREDNISONE. HOME MEDICATIONS: 1. Atenolol 12.5 mg daily. 2. Spironolactone 25 mg b.i.d. 3. Pravastatin 40 mg at bedtime. 4. Oxybutynin 5 mg b.i.d. 5. Aspirin 81 mg daily. 6. Metformin 1000 mg p.o. b.i.d. 7. Protonix 40 mg daily. 8. Clopidogrel 75 mg daily. 9. Humalog subcutaneous insulin pump as directed. 10. Invokana 100 mg p.o. daily. 11. Furosemide 20 mg as needed for edema. 12. Vitamin D capsule daily. PHYSICAL EXAMINATION: VITAL SIGNS: Temperature 97.9 degrees Fahrenheit, pulse 73, oxygen is 96% on room air, respirations 18, and blood pressure is 115/57. GENERAL: This is a morbidly obese woman. She is in no apparent distress and resting comfortably in bed during exam. HEENT: She is normocephalic and atraumatic. Sclerae anicteric. EOMs are intact. Oral mucosa is moist and pink with adequate dentition. NECK: Supple. No jugular venous distention is seen, but exam is difficult with her obesity. Her heart rate is regular with crisp S1 and S2. PMI is nonpalpable due to habitus. LUNGS: Lung sounds are distant and minimally audible, but appear clear throughout bilaterally. ABDOMEN: Obese, soft, nontender without palpable masses. EXTREMITIES: Warm and dry to touch without clubbing, cyanosis, or edema. NEUROLOGIC: Grossly intact. No new focal deficits are seen, but her left arm and left leg are somewhat weaker than her right extremities. DATABASE: Telemetry and EKG were all personally reviewed currently and overall reflect normal sinus rhythm. There were few episodes of what is interpreted as paroxysmal atrial tachycardia with some initial aberrant conduction. Cycle length is consistent and does not appear to be a ventricular tachycardia. LABORATORY DATA: Labs were reviewed and unremarkable. Creatinine is 1.1, potassium 4.1, AST and ALT are within normal limits. Serial troponins were negative. IMPRESSION: 1. Paroxysmal atrial tachycardia with occasional aberrant conduction. 2. History of multiple cerebrovascular accidents of unknown etiology. 3. Inclusion of a Medtronic implantable loop recorder, which battery has been depleted for number of years per patient report as it was implanted in 2010. 4. CHADS-VASc score of 5 on the basis of female gender, prior stroke, hypertension, and diabetes. No indication for anticoagulation at this time as no true atrial fibrillation has been seen. 5. High suspicion and risk for developing atrial fibrillation and possibly previously experienced given her numerous cerebrovascular accidents. RECOMMENDATIONS: Ms. Ovalle is high risk for developing atrial fibrillation and possibly has had episodes provoking her prior CVAs as a potential etiology for her stroke. She has a loop recorder in place that has been battery depleted for a number of years. She no longer follows with a director of undergraduate admissions that was following that device. Ultimately for now, I recommend she continue dual antiplatelet therapy with Plavix and aspirin as no true atrial fibrillation has been seen. My recommendation would be to remove and replace her implantable loop recorder for continued monitoring for potential atrial arrhythmias. This could be followed by Dr. Ferris after it is implanted. We discussed risks, benefits, and alternatives. The patient is in agreement and wishes to proceed. Also recommend considering beta-elpidio therapy if hypertension is no longer an issue and if PAT episodes become more frequent. Thank you for allowing us to participate in the care of this patient. We will move forward with extraction and reimplantation of loop recorder later today. Job ID: [id number]
--- NOTE | 2018-06-02 21:17 | OP ---
DATE OF PROCEDURE: 06/02/2018 PROCEDURE PERFORMED: Loop recorder removal as well as new loop recorder insertion. REFERRING PHYSICIAN: Dr. Ferris. REASON FOR PROCEDURE: Mrs. Ovalle is a pleasant 62-year-old woman with history of paroxysmal atrial tachycardia, on amiodarone. She also has history of prior stroke and CHADS-VASc score is 5. She had a loop recorder in place, which now battery depleted and had further recurrent episodes of atrial tachyarrhythmia and we planned to monitor for paroxysmal atrial fibrillation. She is here for loop recorder removal and new loop recorder implant. The old loop recorder is a Medtronic Reveal XT device and we planned to implant a new LINQ recorder in a separate location. DESCRIPTION OF PROCEDURE: The patient received no sedation through the procedure, but the precordial area was prepped, draped, and anesthetized using subcutaneous lidocaine. Due to the deep location of the device, x-ray was used to position the incision. Incision was made over the pre-existing Reveal XT loop recorder after adequate lidocaine analgesia. Cautery was used for hemostasis and the old LINQ recorder was explanted. Pocket was irrigated with bacitracin solution. The patient also received IV antibiotic prior to the procedure. The wound was closed with two layers of 3-0 Vicryl and also Dermabond was applied. Following that in a separate location at the fourth intercostal space area, numbing was performed and with a standard Medtronic tool kit. A Medtronic LINQ recorder was inserted. The wound was closed also with Dermabond. The patient tolerated the procedure well. No complications noted. CONCLUSION: 1. Successful Medtronic Reveal XT device explant due to battery depletion. 2. Successful new LINQ recorder implant to continue for monitoring of possible atrial fibrillation in future. Job ID: [id number]
--- NOTE | 2018-06-03 14:58 | EKG ---
Test Reason : Blood Pressure : / mmHG Vent. Rate : 071 BPM Atrial Rate : 071 BPM P-R Int : 160 ms QRS Dur : 082 ms QT Int : 398 ms P-R-T Axes : 028 -10 020 degrees QTc Int : 432 ms Normal sinus rhythm Inferior infarct , age undetermined cannot be excluded Cannot rule out Anterior infarct , age undetermined Abnormal ECG Confirmed by SABAS DOTY ([id number]) on 06/03/2018 2:58:04 PM Referred By: ELIZABETH Confirmed By:SABAS DOTY
== END 2018-06-02 18:27 | disposition home or self-care (01) ==
LOC: ERS 19:28 → 2SW 21:30
PROVIDERS: ADMIT Hospitalist; ATTEND Internal Medicine Cardiovascular Disease
PROC: 0JPT02Z Removal of Monitoring Device from Trunk Subcutaneous Tissue and Fascia, Open Approach (ICD-10-PCS; principal; 2018-06-02)
PROC: 0JH602Z Insertion of Monitoring Device into Chest Subcutaneous Tissue and Fascia, Open Approach (ICD-10-PCS; 2018-06-02)
DX: Z45.09 Encounter for adjustment and management of other cardiac device (principal); I48.0 Paroxysmal atrial fibrillation; I10 Essential (primary) hypertension; E11.9 Type 2 diabetes mellitus without complications; I69.954 Hemiplegia and hemiparesis following unspecified cerebrovascular disease affecting left non-dominant side; I49.3 Ventricular premature depolarization; G47.33 Obstructive sleep apnea (adult) (pediatric); E78.5 Hyperlipidemia, unspecified; E66.01 Morbid (severe) obesity due to excess calories; Z68.43 Body mass index [BMI] 50.0-59.9, adult; M19.90 Unspecified osteoarthritis, unspecified site; Z96.41 Presence of insulin pump (external) (internal); Z96.611 Presence of right artificial shoulder joint; Z87.891 Personal history of nicotine dependence; Z91.09 Other allergy status, other than to drugs and biological substances; Z88.1 Allergy status to other antibiotic agents; Z88.8 Allergy status to other drugs, medicaments and biological substances; Z90.710 Acquired absence of both cervix and uterus; Z90.49 Acquired absence of other specified parts of digestive tract; Z79.82 Long term (current) use of aspirin; Z79.02 Long term (current) use of antithrombotics/antiplatelets; Z79.4 Long term (current) use of insulin; Z79.899 Other long term (current) drug therapy; Z98.890 Other specified postprocedural states
CPT/HCPCS: 33285; 33286; 36415; 71045; 78452; 80053; 84484; 85025; 93005; 93010; 93017; 93306; 93970; A9500; C1764; G0378; J2785; J3490; Q0163

== ENCOUNTER 2018-06-08 15:51 | Emergency (ER) | payer OTHER ==
[2018-06-08 16:36] LABS: #Basophils 0.1 thou/uL (0.0-0.2); #Eosinphils 0.2 thou/uL (0.0-0.7); #Lymphocytes 1.3 thou/uL (1.20-3.40); #Monocytes 0.3 thou/uL (0.11-0.59); #Neutrophils 4.9 thou/uL (1.40-6.50); %Eosinophils 3.3 % (0.0-10.0); %Lymphocytes 19.7 % (21.0-51.0); %Monocytes 4.5 % (0.0-10.0); %Neutrophils 71.6 % (42.0-75.0); Hemoglobin 13.2 g/dL (12.0-16.0); Mean Corpuscular HGB CONC 32.7 g/dL (32.0-36.0); Mean Corpuscular Hemoglobin 30.6 pg (27.0-31.0); Mean Corpuscular Volume 93.4 fL (78.0-98.0); Mean Platelet Volume 7.9 fL (7.4-10.4); Platelet Count 205 thou/uL (130-400); RBC Distribution Width 13.8 % (11.5-14.5); Red Blood Cell (RBC) Count 4.31 mill/uL (4.20-5.40); White Blood Cell (WBC) Count 6.8 thou/uL (4.8-10.8)
[2018-06-08 16:50] LABS: ALT (SGPT) 16 U/L (8-55); AST (SGOT) 19 U/L (5-34); Albumin 3.9 g/dL (3.5-5.0); Alkaline Phosphatase 138 U/L (40-150); Anion Gap 13 mmol/L (10-20); BUN (Urea Nitrogen) 19 mg/dL (9.8-20.1); Bilirubin, Total 0.4 mg/dL (0.2-1.2); Calc. Creatinine Clearance 0 mL/min (70-130); Calcium 9.4 mg/dL (7.8-10.44); Carbon Dioxide 25 mmol/L (22-29); Chloride 105 mmol/L (98-107); Estimated GFR-MDRD 49; Globulin 3.2 g/dL (2.4-3.5); Glucose 167 mg/dL (70-105); Potassium 4.2 mmol/L (3.5-5.1); Protein, Total 7.1 g/dL (6.0-8.3); Sodium 139 mmol/L (136-145)
--- NOTE | 2018-06-08 17:36 | RAD ---
FRONTAL VIEW CHEST: 06/08/18 COMPARISON: 05/31/18 INDICATION: Dyspnea. Shortness of breath and chest pressure. FINDINGS: There is interstitial prominence of each lung. The cardiac silhouette is accentuated by portable tech nique as is the pulmonary vasculature. Chest is otherwise similar. IMPRESSION: Prominence of cardiac silhouette, pulmonary vasculature and interstitium which could relate to mild d egree of fluid overload in the correct clinical context. Correlate clinically and as necessary, follo wup with dedicated two view chest may be performed. POS: [facility]
--- NOTE | 2018-06-11 10:38 | EKG ---
Test Reason : CP Blood Pressure : / mmHG Vent. Rate : 084 BPM Atrial Rate : 084 BPM P-R Int : 148 ms QRS Dur : 082 ms QT Int : 382 ms P-R-T Axes : 035 -10 011 degrees QTc Int : 451 ms Normal sinus rhythm Inferior infarct , age undetermined Cannot rule out Anterior infarct , age undetermined Abnormal ECG Confirmed by CANDI BARKSDALE ([id number]), content editor BREN WALSH ([id number]) on 06/11/2018 10:37:47 AM Referred By: Confirmed By:CANDI BARKSDALE
== END 2018-06-08 17:40 | disposition home or self-care (01) ==
LOC: ERS 15:51
DX: R06.00 Dyspnea, unspecified (principal); M19.90 Unspecified osteoarthritis, unspecified site; I10 Essential (primary) hypertension; I47.1 Supraventricular tachycardia; E11.9 Type 2 diabetes mellitus without complications; G47.30 Sleep apnea, unspecified; Z86.73 Personal history of transient ischemic attack (TIA), and cerebral infarction without residual deficits; Z87.891 Personal history of nicotine dependence; Z79.4 Long term (current) use of insulin; Z79.899 Other long term (current) drug therapy; Z79.82 Long term (current) use of aspirin
CPT/HCPCS: 36415; 71045; 80053; 83880; 84484; 85025; 93005

== ENCOUNTER 2018-07-08 00:37 | Outpatient (CLI) | payer OTHER ==
[2018-07-08 09:46] LABS: #Basophils 0.1 thou/uL (0.0-0.2); #Eosinphils 0.3 thou/uL (0.0-0.7); #Lymphocytes 1.2 thou/uL (1.20-3.40); #Monocytes 0.4 thou/uL (0.11-0.59); #Neutrophils 8.3 thou/uL (1.40-6.50); %Basophils 0.6 % (0.0-1.0); %Eosinophils 2.9 % (0.0-10.0); %Lymphocytes 11.6 % (21.0-51.0); %Neutrophils 80.9 % (42.0-75.0); Hemoglobin 13.8 g/dL (12.0-16.0); Mean Corpuscular HGB CONC 32.7 g/dL (32.0-36.0); Mean Corpuscular Hemoglobin 30.6 pg (27.0-31.0); Mean Corpuscular Volume 93.6 fL (78.0-98.0); Platelet Count 227 thou/uL (130-400); RBC Distribution Width 13.8 % (11.5-14.5); Red Blood Cell (RBC) Count 4.51 mill/uL (4.20-5.40); White Blood Cell (WBC) Count 10.3 thou/uL (4.8-10.8)
[2018-07-08 09:55] LABS: INR-International Normal Ratio 1.1; Prothrombin Time 13.9 SEC (12.0-14.7)
[2018-07-08 10:07] LABS: ALT (SGPT) 26 U/L (8-55); AST (SGOT) 32 U/L (5-34); Albumin 4.1 g/dL (3.5-5.0); Alkaline Phosphatase 159 U/L (40-150); Anion Gap 15 mmol/L (10-20); BUN (Urea Nitrogen) 15 mg/dL (9.8-20.1); Bilirubin, Total 0.5 mg/dL (0.2-1.2); Calc. Creatinine Clearance 0 mL/min (70-130); Carbon Dioxide 25 mmol/L (22-29); Chloride 105 mmol/L (98-107); Estimated GFR-MDRD 48; Globulin 3.4 g/dL (2.4-3.5); Glucose 174 mg/dL (70-105); Potassium 4.1 mmol/L (3.5-5.1); Protein, Total 7.5 g/dL (6.0-8.3); Sodium 141 mmol/L (136-145)
== END 2018-07-08 00:38 | disposition home or self-care (01) ==
LOC: LABBT 00:37
PROVIDERS: ATTEND Emergency Medicine
DX: Z01.812 Encounter for preprocedural laboratory examination (principal); R07.9 Chest pain, unspecified
CPT/HCPCS: 80053; 85025; 85610; 85730

== ENCOUNTER 2018-07-14 06:21 | Day surgery (SDC) | payer OTHER ==
[2018-07-08 08:49] VITALS: BMI 51.0
[2018-07-14 09:14] LABS: Cardiac Risk 3.1 (Less than 4.5)
[2018-07-14] MEDS ORDERED: Iopamidol 370 76% 100 ML VIAL ONE (09:55)
[2018-07-14] MEDS ORDERED: Verapamil 5 MG/2 ML VIAL ONE (10:17)
[2018-07-14] MEDS ORDERED: Nitroglycerin 100MG/250ML BOT 250 ML ONE (10:17)
[2018-07-14] MEDS ORDERED: Heparin 10,000 UNITS/1 ML VIAL ONE (10:17)
[2018-07-14] MEDS ORDERED: Fentanyl 100 MCG/2 ML VIAL ONE (12:17)
[2018-07-14] MEDS ORDERED: Midazolam HCl 2 mg/2 ml Vial ONE (12:17)
== END 2018-07-14 16:35 | disposition home or self-care (01) ==
LOC: CCL 06:21
PROVIDERS: ATTEND Internal Medicine Cardiovascular Disease
PROC: 4A023N7 Measurement of Cardiac Sampling and Pressure, Left Heart, Percutaneous Approach (ICD-10-PCS; principal; 2018-07-14)
PROC: B2151ZZ Fluoroscopy of Left Heart using Low Osmolar Contrast (ICD-10-PCS; principal; 2018-07-14)
DX: R07.9 Chest pain, unspecified (principal); I10 Essential (primary) hypertension; E11.9 Type 2 diabetes mellitus without complications; E78.00 Pure hypercholesterolemia, unspecified; E78.5 Hyperlipidemia, unspecified; Z87.891 Personal history of nicotine dependence; Z88.1 Allergy status to other antibiotic agents; Z88.8 Allergy status to other drugs, medicaments and biological substances; Z91.048 Other nonmedicinal substance allergy status
CPT/HCPCS: 80061; 93458; 99152; 99153; C1769; J1644; J2250; J3010; Q9967

== ENCOUNTER 2018-07-28 16:18 | Emergency (ER) | payer OTHER ==
[2018-07-28] MEDS ORDERED: Ketorolac Tromethamine 30 MG/ML VIAL ONE (18:06)
== END 2018-07-28 18:13 | disposition home or self-care (01) ==
LOC: ERS 16:18
DX: M54.5 Low back pain (principal); I10 Essential (primary) hypertension; Z86.73 Personal history of transient ischemic attack (TIA), and cerebral infarction without residual deficits; E11.9 Type 2 diabetes mellitus without complications; G47.30 Sleep apnea, unspecified; Z87.891 Personal history of nicotine dependence
CPT/HCPCS: 96372; J1885

== ENCOUNTER 2018-10-07 22:17 | Observation (INO) | payer OTHER ==
[2018-10-08] MEDS ORDERED: Metoclopramide HCl 10 MG/2 ML VIAL ONE (00:18)
[2018-10-08] MEDS ORDERED: diphenhydrAMINE 50 MG/ML VIAL ONE (00:18)
[2018-10-08 00:20] LABS: #Basophils 0.1 thou/uL (0.0-0.2); #Eosinphils 0.4 thou/uL (0.0-0.7); #Lymphocytes 1.5 thou/uL (1.20-3.40); #Monocytes 0.5 thou/uL (0.11-0.59); #Neutrophils 6.3 thou/uL (1.40-6.50); %Basophils 0.7 % (0.0-1.0); %Eosinophils 4.3 % (0.0-10.0); %Lymphocytes 16.9 % (21.0-51.0); %Monocytes 5.3 % (0.0-10.0); %Neutrophils 72.8 % (42.0-75.0); Hemoglobin 13.7 g/dL (12.0-16.0); Mean Corpuscular Hemoglobin 30.1 pg (27.0-31.0); Mean Corpuscular Volume 94.1 fL (78.0-98.0); Mean Platelet Volume 7.9 fL (7.4-10.4); Platelet Count 203 thou/uL (130-400); RBC Distribution Width 13.6 % (11.5-14.5); Red Blood Cell (RBC) Count 4.54 mill/uL (4.20-5.40); White Blood Cell (WBC) Count 8.7 thou/uL (4.8-10.8)
[2018-10-08 00:58] LABS: ALT (SGPT) 18 U/L (8-55); AST (SGOT) 20 U/L (5-34); Albumin 3.9 g/dL (3.4-4.8); Alkaline Phosphatase 127 U/L (40-150); Anion Gap 15 mmol/L (10-20); BUN (Urea Nitrogen) 12 mg/dL (9.8-20.1); Bilirubin, Total 0.6 mg/dL (0.2-1.2); Calc. Creatinine Clearance 0 mL/min (70-130); Calcium 9.7 mg/dL (7.8-10.44); Carbon Dioxide 22 mmol/L (23-31); Chloride 106 mmol/L (98-107); Estimated GFR-MDRD 50; Globulin 3.3 g/dL (2.4-3.5); Glucose 130 mg/dL (80-115); Potassium 3.9 mmol/L (3.5-5.1); Protein, Total 7.2 g/dL (6.0-8.3); Sodium 139 mmol/L (136-145)
[2018-10-08 01:30] LABS: Bilirubin Negative (Negative); Blood, Urine Negative (Negative); Clarity Clear (Clear); Glucose, Urine (Dipstick) Greater than 1000 mg/dL (Negative); Leukocyte Negative Leu/uL (Negative); Nitrite Negative (Negative); Protein, Urine (Dipstick) Negative (Neg-Trace); Urobilinogen Normal mg/dL (Less than 2)
[2018-10-08] MEDS ORDERED: Ondansetron PF 4 MG/2 ML Vial IVP PRN (04:04)
[2018-10-08] MEDS ORDERED: Ondansetron ODT 4 MG TAB SL PRN (04:04)
[2018-10-08 04:39] VITALS: BMI 51.0
[2018-10-08] MEDS ORDERED: Dextrose 50% Abboject 50 ML SYRINGE SLOW IVP PRN (07:56)
[2018-10-08] MEDS ORDERED: Dextrose 5% in Water 1,000 ML IV PRN (07:56)
[2018-10-08] MEDS ORDERED: HumaLOG 300 UNITS/3 ML VIAL SC PRN ×2 (07:56)
[2018-10-08] MEDS ORDERED: Spironolactone 25 MG TAB PO SCH (08:00)
--- NOTE | 2018-10-08 08:12 | CT ---
CT HEAD NONCONTRAST: Date: 10/08/18 COMPARISON: 06/12/17. INDICATION: Persistent headache. FINDINGS: Normal size of ventricular system. There is periventricular white matter hypoattenuation bilaterally, grossly stable, compatible with chronic microvascular ischemic disease. No acute intracranial hemorr liz, mass effect, or midline shift. There is mild scattered paranasal sinus mucosal thickening. Punc youssef parenchymal calcifications of the right cerebral white matter are stable. IMPRESSION: 1. No acute intracranial hemorrhage or mass effect. 2. Multifocal bilateral cerebral hemispheric hypodensities indicative of microvascular ischemic dise ase. Superimposed punctate parenchymal calcifications of the brain parenchyma are also redemonstrated . POS: [facility]
[2018-10-08] MEDS ORDERED: Fioricet 325/50/40 mg Tablet PO SCH ×2 (08:30→12:00)
[2018-10-08] MEDS ORDERED: Aspirin Chewable 81 MG TAB PO SCH (09:00)
[2018-10-08] MEDS ORDERED: SPIRONOLACTONE 25 MG PO SCH (09:00)
[2018-10-08] MEDS ORDERED: Atenolol 25 MG TAB PO SCH (09:00)
[2018-10-08] MEDS ORDERED: Clopidogrel Bisulfate 75 MG TAB PO SCH (09:00)
[2018-10-08] MEDS ORDERED: Oxybutynin 5 MG TAB PO SCH (09:00)
[2018-10-08] MEDS ORDERED: Canagliflozin [Invokana] 100 MG PO SCH (09:00)
[2018-10-08] MEDS ORDERED: Non-Formulary Item 1 EACH (Canagliflozin [Invokana] 100 MG) PO SCH (09:00)
--- NOTE | 2018-10-08 09:06 | HP ---
CHIEF COMPLAINT: Headache. HISTORY OF PRESENT ILLNESS: Ms. Ovalle is a 63-year-old woman, with history of CVA x3, the last one occurring in 2010, with residual left-sided weakness, who presents with a history of a headache x2 weeks. The patient states that has been constant throughout the last 2 weeks. 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 She does not recall what medication she used to take, but states she was afraid to become addicted again. She reports feeling lightheaded at times, but denies any dizziness, vision changes, or slurred speech. She has not noted any new weakness. No fevers, chills, or sweats. No neck pain or stiffness. No recent head injuries or trauma. Denies starting any new medications or stopping any medications recently. Also, denies any changes with her diet recently. Does not drink caffeine heavily. She states she has tried taking a nap, but notes it does not help. The pain is on the right side of her head, which she is unable to describe, but states sometimes there is a stabbing sensation that comes and goes briefly. Currently, she rates it an 8/10 in severity. The patient denies any sensitivity to sound or light. PAST MEDICAL HISTORY: 1. Hypertension. 2. CVA x3, last one in 2010 with residual left-sided weakness. 3. Type 2 diabetes mellitus. 4. Sleep apnea. 5. History of hypothyroidism. 6. Osteoarthritis. 7. Herniated disk to neck. 8. PVCs. 9. SVT. PAST SURGICAL HISTORY: 1. History of thyroid nodule excision. 2. Right shoulder replacement in November 2017. 3. Thyroidectomy. 4. Bilateral knee surgeries. 5. Hysterectomy. 6. Left shoulder surgery x2. 7. Left elbow surgery. 8. Cholecystectomy. 9. Loop recorder placement. 10. Cervical spine fusion in 2017. SOCIAL HISTORY: The patient lives with her family at home. Denies any current tobacco use. She is a previous smoker. Denies any alcohol use or illicit drug use. ALLERGIES: 1. ADHESIVE. 2. CLINDAMYCIN. 3. DOXYCYCLINE. 4. MAGNESIUM. 5. PREDNISONE. CURRENT MEDICATIONS: 1. Atenolol. 2. Pravastatin. 3. Oxybutynin. 4. Aspirin. 5. Pantoprazole. 6. Clopidogrel. 7. Humalog. 8. Invokana. 9. Furosemide. 10. Vitamin D. PHYSICAL EXAMINATION: GENERAL: The patient is obese, well developed and resting comfortably in bed, in no acute distress. VITAL SIGNS: Temperature 98.3, pulse 72, respirations 18, O2 saturation 94% on room air, home BP 120/68. HEENT: Normocephalic and atraumatic. Pupils are equal, round, reactive to light. Sclerae are without icterus. Slight conjunctival injection of the left eye. Extraocular movements are normal. No nystagmus present. Peripheral vision intact. Oropharynx is clear. No tongue deviation. NECK: Supple. Able to touch chest with chin. No nuchal rigidity. Some neck discomfort with palpation, but this is long-standing. CARDIAC: Regular rate and rhythm. LUNGS: Clear to auscultation bilaterally without wheezes, rales, or rhonchi. ABDOMEN: Obese, soft, nontender, nondistended. Normoactive bowel sounds present. No guarding or rigidity. EXTREMITIES: Without lower leg edema. Power, minimally diminished on the left side, otherwise normal. Left lower extremity range of movement limited by previous hip surgery. NEUROLOGIC: Alert and oriented x3. Speech normal. Facial movements normal. No neuro deficits. SKIN: Without rash or jaundice. LABORATORY DATA: Full blood count unremarkable. Sodium 129, potassium 3.9, BUN 12, creatinine 1.11, GFR 50. Glucose 130, calcium 9.7, total bilirubin 0.6, AST 20, ALT 18, alkaline phosphatase 127, albumin 3.9. Urinalysis notable for glucose greater than 1000, otherwise unremarkable. IMAGING STUDIES: CT of the brain shows no acute intracranial hemorrhage or mass effect. Multifocal bilateral cerebral hemispheric hypodensities indicative of microvascular ischemic disease. Superimposed punctate parenchymal calcifications of the brain parenchyma also re-demonstrated. IMPRESSION AND PLAN: Ms. Ovalle is a 63-year-old woman with a history of CVA x3, who is being referred for management of the following. 1. Headache. The patient has had a persisting headache for 2 weeks for which she has not tried taking any medications due to history of addiction to pain medicine. Headache is localized to the right side. Reports having tenderness to her rastafarian last night. No associated visual disturbances, nausea, or vomiting. No vision changes or speech disturbances or any other neuro deficits. CT head without acute changes. We will obtain an MRI if loop recorder compatible. We will also add ESR and CRP to rule out possibility of giant cell arteritis, though currently she has no tenderness to her scalp or temples and no TMJ tenderness. She has chronic shoulder pain bilaterally from previous surgeries. We will try Fioricet for her headache. In the emergency department, she was given a combination of Reglan and Benadryl with no relief. We will place consultation to Neurology. 2. Diabetes mellitus. We will resume home medications. Monitor glucose and initiate an insulin sliding scale. 3. Hypertension. We will resume home medications and monitor blood pressure. 4. Hypothyroidism. We will check TSH. 5. Gastrointestinal prophylaxis. 6. Deep venous thrombosis prophylaxis with mechanical sequential compression devices. 7. Code status, full. Her surrogate decision maker is her , Ke Ovalle. The patient's case will be discussed with Dr. Crouch for further recommendations. Job ID: [id number]
[2018-10-08] MEDS: metFORMIN 500 MG TAB PO SCH ×2 (10:14→16:22)
--- NOTE | 2018-10-08 11:54 | MRI ---
MRI Brain WO Con: 10/08/2018 8:37 AM CLINICAL HISTORY: Generalized headaches for 2 weeks. TECHNIQUE: Multiplanar, multisequence images were obtained of the brain. COMPARISON: CT the brain without contrast dated October 08, 2018 FINDINGS: Extra axial spaces: Normal in size and morphology for the patient's age. Hemorrhage: None. Ventricular system: Normal in size and morphology for the patient's age. Basal cisterns: Normal. Cerebral parenchyma: There is moderate chronic small vessel white matter ischemic change. Midline shift: None. Cerebellum: Normal. Brainstem: Normal. OTHER: Calvarium: Normal. Vascular system: Normal. Visualized Paranasal sinuses: There is mild mucosal thickening within the ethmoid air cells on the le ft. Visualized Orbits: Normal. Visualized upper cervical spine: Normal. Sella and skull base: Normal. IMPRESSION: No acute intracranial abnormality. Moderate chronic small vessel white matter ischemic change. Mild paranasal sinus disease.
[2018-10-08] MEDS ORDERED: SUMAtriptan Succinate 25 MG TAB PO SCH (15:00)
[2018-10-08 16:00] VITALS: BP 118/62; TEMP 98.6
[2018-10-08] MEDS ORDERED: Atorvastatin Calcium 10 MG TAB PO SCH (21:00)
[2018-10-08] MEDS ORDERED: Pravastatin Sodium 40 MG TAB PO SCH (21:00)
[2018-10-09] MEDS ORDERED: Aspirin 81 mg Enteric Coated Tablet PO SCH (09:00)
== END 2018-10-08 18:04 | disposition home or self-care (01) ==
LOC: ERS 22:17 → 2SE 10-08 02:05
PROVIDERS: ADMIT Internal Medicine; ATTEND Internal Medicine
DX: R51 Headache (principal); G93.89 Other specified disorders of brain; E11.9 Type 2 diabetes mellitus without complications; I10 Essential (primary) hypertension; E03.9 Hypothyroidism, unspecified; G47.30 Sleep apnea, unspecified; M19.90 Unspecified osteoarthritis, unspecified site; G89.28 Other chronic postprocedural pain; M50.20 Other cervical disc displacement, unspecified cervical region; I47.1 Supraventricular tachycardia; Z86.73 Personal history of transient ischemic attack (TIA), and cerebral infarction without residual deficits; Z87.891 Personal history of nicotine dependence; Z91.048 Other nonmedicinal substance allergy status; Z88.1 Allergy status to other antibiotic agents; Z88.8 Allergy status to other drugs, medicaments and biological substances; Z79.82 Long term (current) use of aspirin; Z79.84 Long term (current) use of oral hypoglycemic drugs; Z79.02 Long term (current) use of antithrombotics/antiplatelets; Z79.899 Other long term (current) drug therapy
CPT/HCPCS: 36416; 70450; 70551; 80053; 81003; 84443; 85025; 85652; 86140; 90471; 90732; 96365; 96366; 96375; G0009; G0378; J1200; J2765

== ENCOUNTER 2018-11-15 06:56 | Outpatient (CLI) | payer OTHER ==
--- NOTE | 2018-11-15 13:21 | NM ---
RADIONUCLIDE GASTRIC EMPTYING SCAN: HISTORY: Nausea. RADIOPHARMACEUTICAL: 2 mCi Technetium 99m sulfur colloid administered orally in scrambled eggs. FINDINGS: There is 45% emptying of the ingested gastric contents at 1 hour, 70% emptying at 2 hours, 74% emptyi ng at 3 hours, and 83% emptying at 4 hours. The calculated gastric half-time measures 71 minutes. POS: [facility]
== END 2018-11-15 06:57 | disposition home or self-care (01) ==
LOC: NM 06:56
PROVIDERS: ATTEND Physician Assistant Medical
DX: K21.9 Gastro-esophageal reflux disease without esophagitis (principal); R11.0 Nausea
CPT/HCPCS: 78264; A9541

== ENCOUNTER 2019-02-07 09:15 | Outpatient (CLI) | payer OTHER ==
--- NOTE | 2019-02-07 10:37 | MMO ---
Bilateral MAMMO Bilat Screen [facility]. CLINICAL HISTORY: Patient is 63 years old and is seen for screening. The patient has no family history of breast cancer. The patient has no personal history of cancer. VIEWS: The views performed were: bilateral craniocaudal; bilateral craniocaudal with tomosynthesis; bilateral mediolateral oblique; bilateral mediolateral oblique with tomosynthesis; and cleavage view. FILMS COMPARED: The present examination has been compared to prior imaging studies performed at [facility] on 02/15/2012, 04/03/2013, 01/02/2015 and 01/21/2016. This study has been interpreted with the assistance of computer-aided detection. MAMMOGRAM FINDINGS: The breasts are almost entirely fat. There are no suspicious masses, suspicious calcifications, or new areas of architectural distortion. IMPRESSION: THERE IS NO MAMMOGRAPHIC EVIDENCE OF MALIGNANCY. A ROUTINE FOLLOW-UP MAMMOGRAM IN 1 YEAR IS RECOMMENDED. THE RESULTS OF THIS EXAM WERE SENT TO THE PATIENT. ACR BI-RADS Category 1 - Negative MAMMOGRAPHY NOTE: 1. A negative mammogram report should not delay a biopsy if a dominant of clinically suspicious mass is present. 2. Approximately 10% to 15% of breast cancers are not detected by mammography. 3. Adenosis and dense breasts may obscure an underlying neoplasm. Reported by: LARRY FULTON MD Electonically Signed: [id number]
== END 2019-02-07 09:16 | disposition home or self-care (01) ==
LOC: BICMAMMO 09:15
PROVIDERS: ATTEND Family Medicine
DX: Z12.31 Encounter for screening mammogram for malignant neoplasm of breast (principal)
CPT/HCPCS: 77063; 77067

== ENCOUNTER 2019-12-12 12:05 | Outpatient (CLI) | payer OTHER ==
--- NOTE | 2019-12-12 13:48 | CT ---
CT ABDOMEN AND PELVIS WITHOUT CONTRAST USING STONE PROTOCOL 12/12/19 HISTORY: Urge incontinence, renal insufficiency and right lower quadrant pain. COMPARISON: Contrast enhanced exam of 09/08/18. FINDINGS: Absence of oral and IV contrast reduces the sensitivity of the exam particularly for evaluation of so lid organs and bowel. The lung bases are clear. The patient is post cholecystectomy. No free air or f ree fluid is seen in the abdomen or pelvis. No calculi is seen in the kidneys, ureters or the urinary bladder. No hydroureteronephrosis is noted on either side. The patient is post hysterectomy. The small bowel loops are not abnormally dilated. A normal appearin g appendix is present. There are vascular calcifications without evidence of aneurysmal dilatation of the abdominal aorta. M ultilevel degenerative changes are seen in the spine. IMPRESSION: No CT evidence of urinary tract calculi/obstruction or appendicitis. POS: [facility]
== END 2019-12-12 12:06 | disposition home or self-care (01) ==
LOC: BICCT 12:05
PROVIDERS: ATTEND Urology
DX: N28.9 Disorder of kidney and ureter, unspecified (principal); R10.31 Right lower quadrant pain; N39.41 Urge incontinence
CPT/HCPCS: 36415; 74176; 80048; 83036

== ENCOUNTER 2020-11-06 09:24 | Outpatient (CLI) | payer OTHER ==
[2020-11-06 18:41] LABS: SARS-CoV-2 PCR by NAA Not Detected (NotDetected)
== END 2020-11-06 09:25 | disposition home or self-care (01) ==
LOC: LABBT 09:24
PROVIDERS: ATTEND Physician Assistant Medical
DX: Z01.812 Encounter for preprocedural laboratory examination (principal); Z20.822 Contact with and (suspected) exposure to COVID-19
CPT/HCPCS: U0003; U0005

== ENCOUNTER 2020-11-11 06:33 | Day surgery (SDC) | payer OTHER ==
[2020-11-07 16:08] VITALS: BMI 51.0
[2020-11-11 07:16] LABS: #Basophils 0.1 thou/uL (0.0-0.2); #Eosinphils 0.2 thou/uL (0.0-0.7); #Monocytes 0.3 thou/uL (0.11-0.59); #Neutrophils 4.5 thou/uL (1.40-6.50); %Basophils 1.1 % (0.0-1.0); %Eosinophils 3.6 % (0.0-10.0); %Lymphocytes 15.7 % (21.0-51.0); %Monocytes 5.5 % (0.0-10.0); %Neutrophils 74.2 % (42.0-75.0); Hemoglobin 12.9 g/dL (12.0-16.0); Mean Corpuscular HGB CONC 33.9 g/dL (32.0-36.0); Mean Corpuscular Hemoglobin 33.9 pg (27.0-31.0); Mean Corpuscular Volume 99.9 fL (78.0-98.0); Mean Platelet Volume 8.4 fL (7.4-10.4); Platelet Count 154 thou/uL (130-400); RBC Distribution Width 13.9 % (11.5-14.5); Red Blood Cell (RBC) Count 3.81 mill/uL (4.20-5.40); White Blood Cell (WBC) Count 6.1 thou/uL (4.8-10.8)
[2020-11-11 07:27] LABS: INR-International Normal Ratio 1.1; PTT 31.9 sec (22.9-36.1); Prothrombin Time 14.1 sec (12.0-14.7)
[2020-11-11 08:26] VITALS: BP 146/74; TEMP 98.5
[2020-11-11] MEDS ORDERED: Fentanyl 100 MCG/2 ML VIAL ONE (08:31)
[2020-11-11] MEDS ORDERED: Midazolam HCl 2 mg/2 ml Vial ONE (08:31)
[2020-11-11] MEDS ORDERED: Sodium Bicarbonate 2.5 MEQ/5 ML VIAL ONE (08:32)
[2020-11-11] MEDS ORDERED: Lidocaine 1% PF 5 ML VIAL ONE (08:32)
== END 2020-11-11 11:30 | disposition home or self-care (01) ==
LOC: ULT 06:33
PROVIDERS: ATTEND Physician Assistant Medical
PROC: 0FB23ZX Excision of Left Lobe Liver, Percutaneous Approach, Diagnostic (ICD-10-PCS; principal; 2020-11-11)
DX: K75.81 Nonalcoholic steatohepatitis (NASH) (principal); K74.69 Other cirrhosis of liver; G47.33 Obstructive sleep apnea (adult) (pediatric); I10 Essential (primary) hypertension; F10.11 Alcohol abuse, in remission; K21.00 Gastro-esophageal reflux disease with esophagitis, without bleeding; E89.0 Postprocedural hypothyroidism; E11.43 Type 2 diabetes mellitus with diabetic autonomic (poly)neuropathy; K31.84 Gastroparesis; E66.9 Obesity, unspecified; Z68.43 Body mass index [BMI] 50.0-59.9, adult; Z86.73 Personal history of transient ischemic attack (TIA), and cerebral infarction without residual deficits; Z87.891 Personal history of nicotine dependence; Z79.02 Long term (current) use of antithrombotics/antiplatelets; Z79.82 Long term (current) use of aspirin; Z79.84 Long term (current) use of oral hypoglycemic drugs; Z79.899 Other long term (current) drug therapy; Z88.1 Allergy status to other antibiotic agents; Z88.8 Allergy status to other drugs, medicaments and biological substances
CPT/HCPCS: 36415; 47000; 76942; 85025; 85610; 85730; 88307; 88313; 88321; J2250; J3010

== ENCOUNTER 2021-03-11 10:57 | Emergency (ER) | payer OTHER ==
[2021-03-11] MEDS ORDERED: Ondansetron PF 4 MG/2 ML Vial ONE (11:25)
[2021-03-11 12:13] LABS: #Eosinphils 0.2 thou/uL (0.0-0.7); #Lymphocytes 0.7 thou/uL (1.20-3.40); #Monocytes 0.3 thou/uL (0.11-0.59); %Basophils 0.8 % (0.0-1.0); %Eosinophils 4.2 % (0.0-10.0); %Lymphocytes 12.7 % (21.0-51.0); %Monocytes 4.8 % (0.0-10.0); %Neutrophils 77.6 % (42.0-75.0); Hemoglobin 12.2 g/dL (12.0-16.0); MDiff Complete? YES; Mean Corpuscular HGB CONC 32.5 g/dL (32.0-36.0); Mean Corpuscular Hemoglobin 32.9 pg (27.0-31.0); Mean Platelet Volume 7.5 fL (7.4-10.4); Platelet Count 118 thou/uL (130-400); Platelet Morphology Comment Appears Decreased; RBC Distribution Width 14.2 % (11.5-14.5); RBC Morphology Normal; Red Blood Cell (RBC) Count 3.71 mill/uL (4.20-5.40); Small Platelets SLIGHT; White Blood Cell (WBC) Count 5.2 thou/uL (4.8-10.8)
[2021-03-11 12:16] LABS: ALT (SGPT) 21 U/L (8-55); AST (SGOT) 39 U/L (5-34); Albumin 3.2 g/dL (3.4-4.8); Alkaline Phosphatase 293 U/L (40-110); Anion Gap 17 mmol/L (10-20); BUN (Urea Nitrogen) 10 mg/dL (9.8-20.1); Bilirubin, Total 1.7 mg/dL (0.2-1.2); Calc. Creatinine Clearance 0 mL/min (70-130); Calcium 9.4 mg/dL (7.8-10.44); Carbon Dioxide 20 mmol/L (23-31); Chloride 104 mmol/L (98-107); Globulin 4.2 g/dL (2.4-3.5); Glucose 351 mg/dL (80-115); Lipase 32 U/L (8-78); Potassium 3.9 mmol/L (3.5-5.1); Protein, Total 7.4 g/dL (5.8-8.1); Sodium 137 mmol/L (136-145)
[2021-03-11 12:53] LABS: Bilirubin Negative (Negative); Blood, Urine Negative (Negative); Clarity Clear (Clear); Glucose, Urine (Dipstick) Greater than 1000 mg/dL (Negative); Ketone, Urine Negative (Negative); Leukocyte Negative Leu/uL (Negative); Nitrite Negative (Negative); Protein, Urine (Dipstick) Negative (Neg-Trace); Specific Gravity, Urine 1.021 (1.002-1.036); pH, Urine 5.5 (5.0-9.0)
== END 2021-03-11 14:04 | disposition home or self-care (01) ==
LOC: ERS 10:57
DX: L03.311 Cellulitis of abdominal wall (principal); I10 Essential (primary) hypertension; E11.9 Type 2 diabetes mellitus without complications; M19.90 Unspecified osteoarthritis, unspecified site; Z87.891 Personal history of nicotine dependence; Z79.82 Long term (current) use of aspirin; Z79.899 Other long term (current) drug therapy
CPT/HCPCS: 36415; 36416; 74177; 80053; 81003; 83605; 83690; 85025; 96374; J2405

== ENCOUNTER 2021-08-29 09:32 | Outpatient (CLI) | payer OTHER ==
[~2021-08-29 09:32] MED LIST changes: -FLU VACC QS2017-18 36 mo. & older 0.5 ML SYRINGE IM ONE; +Iopamidol-370 76% 500 ML 1 ML ONE; -Iopamidol-M 300 61% 15 ML VIAL ONE
== END 2021-08-29 09:33 | disposition home or self-care (01) ==
LOC: BICCT 09:32
PROVIDERS: ATTEND Physician Assistant Medical
DX: K74.60 Unspecified cirrhosis of liver (principal); R93.5 Abnormal findings on diagnostic imaging of other abdominal regions, including retroperitoneum; R10.32 Left lower quadrant pain; R19.04 Left lower quadrant abdominal swelling, mass and lump; R16.2 Hepatomegaly with splenomegaly, not elsewhere classified; J84.10 Pulmonary fibrosis, unspecified; M47.814 Spondylosis without myelopathy or radiculopathy, thoracic region; M16.0 Bilateral primary osteoarthritis of hip; M47.816 Spondylosis without myelopathy or radiculopathy, lumbar region; R91.8 Other nonspecific abnormal finding of lung field; Z90.49 Acquired absence of other specified parts of digestive tract; Z90.710 Acquired absence of both cervix and uterus
CPT/HCPCS: 74178; 82565

== ENCOUNTER 2021-12-02 05:53 | Day surgery (SDC) | payer OTHER ==
[2021-11-27 11:41] VITALS: BMI 54.5
[2021-12-02] MEDS ORDERED: Lidocaine Viscous Sol 2% 15 ml UD Cup ONE (08:55)
== END 2021-12-02 11:12 | disposition home or self-care (01) ==
LOC: SDC 05:53
PROVIDERS: ATTEND Internal Medicine Gastroenterology
PROC: 0DBH8ZX Excision of Cecum, Via Natural or Artificial Opening Endoscopic, Diagnostic (ICD-10-PCS; principal; 2021-12-02)
PROC: 0DBP8ZX Excision of Rectum, Via Natural or Artificial Opening Endoscopic, Diagnostic (ICD-10-PCS; principal; 2021-12-02)
PROC: 0DBK8ZX Excision of Ascending Colon, Via Natural or Artificial Opening Endoscopic, Diagnostic (ICD-10-PCS; principal; 2021-12-02)
PROC: 0DB78ZX Excision of Stomach, Pylorus, Via Natural or Artificial Opening Endoscopic, Diagnostic (ICD-10-PCS; principal; 2021-12-02)
PROC: 0DBL8ZX Excision of Transverse Colon, Via Natural or Artificial Opening Endoscopic, Diagnostic (ICD-10-PCS; principal; 2021-12-02)
PROC: 0DBN8ZX Excision of Sigmoid Colon, Via Natural or Artificial Opening Endoscopic, Diagnostic (ICD-10-PCS; principal; 2021-12-02)
DX: Z12.11 Encounter for screening for malignant neoplasm of colon (principal); D12.0 Benign neoplasm of cecum; D12.2 Benign neoplasm of ascending colon; D12.3 Benign neoplasm of transverse colon; D12.5 Benign neoplasm of sigmoid colon; D12.8 Benign neoplasm of rectum; K31.89 Other diseases of stomach and duodenum; K57.30 Diverticulosis of large intestine without perforation or abscess without bleeding; K74.60 Unspecified cirrhosis of liver; I85.10 Secondary esophageal varices without bleeding; E11.9 Type 2 diabetes mellitus without complications; G47.30 Sleep apnea, unspecified; Z86.010 Personal history of colon polyps; Z86.73 Personal history of transient ischemic attack (TIA), and cerebral infarction without residual deficits; Z79.02 Long term (current) use of antithrombotics/antiplatelets; Z79.4 Long term (current) use of insulin; Z79.82 Long term (current) use of aspirin; Z79.899 Other long term (current) drug therapy; Z88.1 Allergy status to other antibiotic agents; Z88.8 Allergy status to other drugs, medicaments and biological substances; Z91.048 Other nonmedicinal substance allergy status
CPT/HCPCS: 88305

== ENCOUNTER 2022-01-23 14:02 | Inpatient (IN) | payer OTHER ==
[2022-01-23 15:11] LABS: #Basophils 0.1 thou/uL (0.0-0.2); #Eosinphils 0.2 thou/uL (0.0-0.7); #Monocytes 0.4 thou/uL (0.11-0.59); #Neutrophils 4.5 thou/uL (1.40-6.50); %Basophils 0.8 % (0.0-1.0); %Lymphocytes 16.6 % (21.0-51.0); %Monocytes 6.5 % (0.0-10.0); %Neutrophils 72.1 % (42.0-75.0); Hemoglobin 10.5 g/dL (12.0-16.0); Mean Corpuscular HGB CONC 32.4 g/dL (32.0-36.0); Mean Corpuscular Hemoglobin 34.1 pg (27.0-31.0); Platelet Count 156 thou/uL (130-400); RBC Distribution Width 14.4 % (11.5-14.5); Red Blood Cell (RBC) Count 3.08 mill/uL (4.20-5.40); White Blood Cell (WBC) Count 6.2 thou/uL (4.8-10.8)
[2022-01-23 15:27] LABS: ALT (SGPT) 16 U/L (8-55); AST (SGOT) 32 U/L (5-34); Albumin 3.5 g/dL (3.4-4.8); Alkaline Phosphatase 289 U/L (40-110); Anion Gap 11 mmol/L (10-20); BUN (Urea Nitrogen) 10 mg/dL (9.8-20.1); Bilirubin, Total 2.3 mg/dL (0.2-1.2); Calc. Creatinine Clearance 0 mL/min (70-130); Calcium 8.8 mg/dL (7.8-10.44); Carbon Dioxide 25 mmol/L (23-31); Chloride 109 mmol/L (98-107); Estimated GFR 51; Globulin 3.7 g/dL (2.4-3.5); Glucose 120 mg/dL (80-115); Potassium 4.1 mmol/L (3.5-5.1); Protein, Total 7.2 g/dL (5.8-8.1); Sodium 141 mmol/L (136-145)
[2022-01-23] MEDS ORDERED: Lidocaine 2% PF 5 ML VIAL ONE (16:00)
[2022-01-23] MEDS ORDERED: Cefepime 2 GM VIAL ONE (16:01)
[2022-01-23] MEDS ORDERED: Vancomycin 1 GM/200 ML BAG ONE (16:35)
[2022-01-23] MEDS ORDERED: Ondansetron PF 4 MG/2 ML Vial IVP PRN (18:27)
[2022-01-23] MEDS ORDERED: HYDROcodone/Acetaminophen 5/325 mg Tablet PO PRN (18:27)
[2022-01-23] MEDS ORDERED: Ondansetron ODT 4 MG TAB PO PRN (18:27)
[2022-01-23] MEDS ORDERED: Acetaminophen 325 MG TAB PO PRN (18:27)
[2022-01-23] MEDS ORDERED: Dextrose 50% Abboject 50 ML SYRINGE SLOW IVP PRN (18:27)
[2022-01-23] MEDS ORDERED: Dextrose 5% in Water 1,000 ML IV PRN (18:27)
[2022-01-23] MEDS ORDERED: Furosemide 40 MG/4 ML VIAL SLOW IVP SCH (18:45)
[2022-01-23 20:11] VITALS: BMI 57.6
[2022-01-23 20:12] LABS: Iron 47 ug/dL (50-170); Iron Binding Capacity, Total 310 mcg/dL (265-497)
[2022-01-23] MEDS ORDERED: Morphine 4 MG/ML VIAL SLOW IVP PRN (20:22)
[2022-01-23] MEDS ORDERED: Vancomycin 1 GM in Premix Bag 1 BAG IVPB SCH ×2 (21:00→21:30)
[2022-01-24 03:50] LABS: #Basophils 0.1 thou/uL (0.0-0.2); #Eosinphils 0.3 thou/uL (0.0-0.7); #Lymphocytes 0.9 thou/uL (1.20-3.40); #Monocytes 0.3 thou/uL (0.11-0.59); #Neutrophils 3.9 thou/uL (1.40-6.50); %Basophils 1.1 % (0.0-1.0); %Eosinophils 4.8 % (0.0-10.0); %Lymphocytes 17.2 % (21.0-51.0); Hemoglobin 9.9 g/dL (12.0-16.0); Mean Corpuscular HGB CONC 32.8 g/dL (32.0-36.0); Mean Corpuscular Hemoglobin 34.4 pg (27.0-31.0); Mean Platelet Volume 7.6 fL (7.4-10.4); Platelet Count 143 thou/uL (130-400); RBC Distribution Width 14.6 % (11.5-14.5); Red Blood Cell (RBC) Count 2.88 mill/uL (4.20-5.40); White Blood Cell (WBC) Count 5.4 thou/uL (4.8-10.8)
[2022-01-24 04:14] LABS: ALT (SGPT) 17 U/L (8-55); AST (SGOT) 29 U/L (5-34); Albumin 3.3 g/dL (3.4-4.8); Alkaline Phosphatase 266 U/L (40-110); Anion Gap 11 mmol/L (10-20); BUN (Urea Nitrogen) 10 mg/dL (9.8-20.1); Bilirubin, Total 2.1 mg/dL (0.2-1.2); Calc. Creatinine Clearance 140 mL/min (70-130); Calcium 8.7 mg/dL (7.8-10.44); Carbon Dioxide 22 mmol/L (23-31); Cardiac Risk 2.9 (Less than 4.5); Chloride 110 mmol/L (98-107); Cholesterol 144 mg/dl (< 200 Desired); Estimated GFR 60; Globulin 3.5 g/dL (2.4-3.5); Glucose 95 mg/dL (80-115); HDL Cholesterol 50 mg/dL (>60 Neg Risk); LDL Cholesterol, Calculated 82 mg/dL; Potassium 3.6 mmol/L (3.5-5.1); Protein, Total 6.8 g/dL (5.8-8.1); Sodium 139 mmol/L (136-145); Triglycerides 61 mg/dL (Less than 150)
[2022-01-24] MEDS: Cefepime 1 GM in Sodium Chloride 0.9% 100 ML IVPB SCH ×2 (04:14→16:05)
[2022-01-24 04:41] LABS: Ferritin 106.15 ng/mL (10-291); Thyroid Stimulating Hormone 2.6611 uIU/mL (0.35-4.94)
[2022-01-24] MEDS: VANCOMYCIN 1.25 GM/250 ML BAG 1.25 GM in Premix Bag 1 BAG IVPB SCH ×2 (04:59→16:46)
[2022-01-24] MEDS: Furosemide 40 MG/4 ML VIAL SLOW IVP SCH ×2 (05:05→16:05)
[2022-01-24] MEDS: Oxybutynin 5 MG TAB PO SCH ×2 (09:20→21:11)
[2022-01-24] MEDS: Spironolactone 25 MG TAB PO SCH (09:20)
[2022-01-24] MEDS: Clopidogrel Bisulfate 75 MG TAB PO SCH (09:20)
[2022-01-24] MEDS: Flecainide 50 MG TAB PO SCH ×2 (09:20→21:59)
[2022-01-24] MEDS: Atorvastatin Calcium 10 MG TAB PO SCH (21:11)
[2022-01-25] MEDS: Cefepime 1 GM in Sodium Chloride 0.9% 100 ML IVPB SCH ×2 (04:20→16:19)
[2022-01-25 04:46] LABS: #Eosinphils 0.2 thou/uL (0.0-0.7); #Lymphocytes 0.8 thou/uL (1.20-3.40); #Monocytes 0.3 thou/uL (0.11-0.59); %Basophils 0.8 % (0.0-1.0); %Eosinophils 4.3 % (0.0-10.0); %Lymphocytes 18.3 % (21.0-51.0); %Monocytes 6.7 % (0.0-10.0); %Neutrophils 69.9 % (42.0-75.0); Hemoglobin 9.6 g/dL (12.0-16.0); Mean Corpuscular HGB CONC 30.8 g/dL (32.0-36.0); Mean Platelet Volume 8.1 fL (7.4-10.4); Platelet Count 133 thou/uL (130-400); RBC Distribution Width 14.4 % (11.5-14.5); Red Blood Cell (RBC) Count 2.99 mill/uL (4.20-5.40); White Blood Cell (WBC) Count 4.3 thou/uL (4.8-10.8)
[2022-01-25 05:00] LABS: Vancomycin, Trough 21.3 ug/mL
[2022-01-25 05:01] LABS: Anion Gap 14 mmol/L (10-20); BUN (Urea Nitrogen) 12 mg/dL (9.8-20.1); Calc. Creatinine Clearance 121 mL/min (70-130); Carbon Dioxide 26 mmol/L (23-31); Chloride 106 mmol/L (98-107); Estimated GFR 50; Glucose 156 mg/dL (80-115); Potassium 3.8 mmol/L (3.5-5.1); Sodium 142 mmol/L (136-145)
[2022-01-25] MEDS: VANCOMYCIN 1.25 GM/250 ML BAG 1.25 GM in Premix Bag 1 BAG IVPB SCH (05:22)
[2022-01-25] MEDS: Furosemide 40 MG/4 ML VIAL SLOW IVP SCH (06:08)
[2022-01-25] MEDS: Vancomycin 1 GM in Premix Bag 1 BAG IVPB SCH ×2 (06:11→17:12)
[2022-01-25] MEDS: Flecainide 50 MG TAB PO SCH ×2 (08:43→21:16)
[2022-01-25] MEDS: Spironolactone 25 MG TAB PO SCH (08:43)
[2022-01-25] MEDS: Clopidogrel Bisulfate 75 MG TAB PO SCH (08:44)
[2022-01-25] MEDS: Empagliflozin 10 MG TAB PO SCH (08:44)
[2022-01-25] MEDS: Oxybutynin 5 MG TAB PO SCH ×2 (08:44→21:16)
[2022-01-25] MEDS: HumaLOG 300 UNITS/3 ML VIAL SC PRN (11:09)
[2022-01-25] MEDS: Atorvastatin Calcium 10 MG TAB PO SCH (21:16)
[2022-01-25] MEDS ORDERED: HumaLOG 300 UNITS/3 ML VIAL SC PRN (23:32)
[2022-01-26] MEDS: Cefepime 1 GM in Sodium Chloride 0.9% 100 ML IVPB SCH (03:59)
[2022-01-26 04:44] LABS: #Eosinphils 0.1 thou/uL (0.0-0.7); #Lymphocytes 0.7 thou/uL (1.20-3.40); #Monocytes 0.3 thou/uL (0.11-0.59); #Neutrophils 2.3 thou/uL (1.40-6.50); %Basophils 0.9 % (0.0-1.0); %Eosinophils 4.2 % (0.0-10.0); %Monocytes 8.8 % (0.0-10.0); %Neutrophils 66.1 % (42.0-75.0); Anion Gap 13 mmol/L (10-20); BUN (Urea Nitrogen) 14 mg/dL (9.8-20.1); Calc. Creatinine Clearance 122 mL/min (70-130); Calcium 8.9 mg/dL (7.8-10.44); Carbon Dioxide 26 mmol/L (23-31); Chloride 104 mmol/L (98-107); Estimated GFR 54; Glucose 146 mg/dL (80-115); Hemoglobin 9.6 g/dL (12.0-16.0); Mean Corpuscular HGB CONC 32.6 g/dL (32.0-36.0); Mean Corpuscular Hemoglobin 34.1 pg (27.0-31.0); Mean Platelet Volume 8.3 fL (7.4-10.4); Platelet Count 126 thou/uL (130-400); Potassium 3.2 mmol/L (3.5-5.1); RBC Distribution Width 14.3 % (11.5-14.5); Sodium 140 mmol/L (136-145); White Blood Cell (WBC) Count 3.5 thou/uL (4.8-10.8)
[2022-01-26] MEDS: Vancomycin 1 GM in Premix Bag 1 BAG IVPB SCH (06:30)
[2022-01-26] MEDS ORDERED: Potassium Chloride 20 MEQ TAB PO SCH (07:45)
[2022-01-26] MEDS ORDERED: Furosemide 40 MG/4 ML VIAL SLOW IVP SCH (09:00)
[2022-01-26] MEDS ORDERED: Furosemide 20 MG/2 ML VIAL SLOW IVP SCH (09:00)
[2022-01-26] MEDS: Clopidogrel Bisulfate 75 MG TAB PO SCH (09:42)
[2022-01-26] MEDS: Spironolactone 25 MG TAB PO SCH (09:42)
[2022-01-26] MEDS: Flecainide 50 MG TAB PO SCH (09:42)
[2022-01-26] MEDS: Oxybutynin 5 MG TAB PO SCH (09:42)
[2022-01-26] MEDS: Empagliflozin 10 MG TAB PO SCH (09:42)
[2022-01-26] MEDS: HumaLOG 300 UNITS/3 ML VIAL SC PRN (11:37)
[2022-01-26 12:07] VITALS: BP 143/66; TEMP 97.6
== END 2022-01-26 14:00 | disposition home or self-care (01) | DRG 602 ==
LOC: ERS 14:02 → OBSVTOIN 17:46 → 2NO 17:46
PROVIDERS: ADMIT Family Medicine; ATTEND Internal Medicine
DX: L03.115 Cellulitis of right lower limb (principal); I50.33 Acute on chronic diastolic (congestive) heart failure; N17.9 Acute kidney failure, unspecified; Z68.43 Body mass index [BMI] 50.0-59.9, adult; M70.51 Other bursitis of knee, right knee; Z96.611 Presence of right artificial shoulder joint; Z96.653 Presence of artificial knee joint, bilateral; G47.33 Obstructive sleep apnea (adult) (pediatric); K74.60 Unspecified cirrhosis of liver; N18.30 Chronic kidney disease, stage 3 unspecified; D63.1 Anemia in chronic kidney disease; E11.22 Type 2 diabetes mellitus with diabetic chronic kidney disease; E66.01 Morbid (severe) obesity due to excess calories; E87.6 Hypokalemia; E88.09 Other disorders of plasma-protein metabolism, not elsewhere classified; Z87.891 Personal history of nicotine dependence; Z90.49 Acquired absence of other specified parts of digestive tract; Z90.710 Acquired absence of both cervix and uterus; Z88.1 Allergy status to other antibiotic agents; Z88.8 Allergy status to other drugs, medicaments and biological substances; Z86.73 Personal history of transient ischemic attack (TIA), and cerebral infarction without residual deficits
CPT/HCPCS: 36415; 36416; 71045; 80048; 80053; 80061; 80202; 82140; 82607; 82728; 83036; 83540; 83550; 83880; 84443; 84484; 85025; 85652; 86140; 93005; 93306; 93798; 94660; 96365; 96366; 96367; J0692; J1940; J2001; J3370; J3490; U0003; U0005

== ENCOUNTER 2022-04-14 06:38 | Day surgery (SDC) | payer OTHER ==
[2022-04-13 09:15] VITALS: BMI 54.5
[2022-04-14] MEDS ORDERED: Lidocaine 1% (PF) 30 ML VIAL ONE (07:09)
[2022-04-14] MEDS ORDERED: EPINEPHrine 1 MG/ML AMP ONE (07:09)
== END 2022-04-14 09:45 | disposition home or self-care (01) ==
LOC: SDC 06:38
PROVIDERS: ATTEND Internal Medicine Cardiovascular Disease
PROC: 0JPT32Z Removal of Monitoring Device from Trunk Subcutaneous Tissue and Fascia, Percutaneous Approach (ICD-10-PCS; principal; 2022-04-14)
PROC: 0JH602Z Insertion of Monitoring Device into Chest Subcutaneous Tissue and Fascia, Open Approach (ICD-10-PCS; principal; 2022-04-14)
DX: Z45.09 Encounter for adjustment and management of other cardiac device (principal); I47.1 Supraventricular tachycardia; G47.33 Obstructive sleep apnea (adult) (pediatric); I11.9 Hypertensive heart disease without heart failure; E78.5 Hyperlipidemia, unspecified; E11.9 Type 2 diabetes mellitus without complications; E66.01 Morbid (severe) obesity due to excess calories; Z68.43 Body mass index [BMI] 50.0-59.9, adult; Z86.73 Personal history of transient ischemic attack (TIA), and cerebral infarction without residual deficits; Z87.891 Personal history of nicotine dependence; Z79.02 Long term (current) use of antithrombotics/antiplatelets; Z79.4 Long term (current) use of insulin; Z79.82 Long term (current) use of aspirin; Z79.84 Long term (current) use of oral hypoglycemic drugs; Z79.899 Other long term (current) drug therapy; Z88.1 Allergy status to other antibiotic agents; Z88.8 Allergy status to other drugs, medicaments and biological substances; Z91.048 Other nonmedicinal substance allergy status
CPT/HCPCS: 33285; 33286; J0171; J2001

== ENCOUNTER 2022-05-14 13:06 | Inpatient (IN) | payer OTHER ==
[2022-05-14] MEDS ORDERED: Iopamidol-370 76% 500 ML 1 ML ONE (13:24)
[2022-05-14 13:45] LABS: #Basophils 0.1 thou/uL (0.0-0.2); #Eosinphils 0.3 thou/uL (0.0-0.7); #Monocytes 0.3 thou/uL (0.11-0.59); #Neutrophils 4.1 thou/uL (1.40-6.50); %Eosinophils 5.6 % (0.0-10.0); %Lymphocytes 16.9 % (21.0-51.0); %Monocytes 5.7 % (0.0-10.0); %Neutrophils 70.8 % (42.0-75.0); Hemoglobin 10.2 g/dL (12.0-16.0); Mean Corpuscular HGB CONC 32.5 g/dL (32.0-36.0); Mean Corpuscular Hemoglobin 33.6 pg (27.0-31.0); Mean Platelet Volume 8.2 fL (7.4-10.4); Platelet Count 106 10x3/uL (130-400); RBC Distribution Width 16.2 % (11.5-14.5); Red Blood Cell (RBC) Count 3.03 mill/uL (4.20-5.40); White Blood Cell (WBC) Count 5.8 10x3/uL (4.8-10.8)
[2022-05-14 14:06] LABS: ALT (SGPT) 17 U/L (8-55); AST (SGOT) 36 U/L (5-34); Albumin 3.3 g/dL (3.4-4.8); Alkaline Phosphatase 234 U/L (40-110); Anion Gap 14 mmol/L (10-20); BUN (Urea Nitrogen) 14 mg/dL (9.8-20.1); Bilirubin, Total 1.6 mg/dL (0.2-1.2); Calc. Creatinine Clearance 0 mL/min (70-130); Calcium 8.4 mg/dL (7.8-10.44); Carbon Dioxide 19 mmol/L (23-31); Chloride 113 mmol/L (98-107); Estimated GFR 46; Globulin 3.4 g/dL (2.4-3.5); Glucose 134 mg/dL (80-115); Protein, Total 6.7 g/dL (5.8-8.1); Sodium 142 mmol/L (136-145)
[2022-05-14] MEDS ORDERED: HumaLOG 300 UNITS/3 ML VIAL SC PRN (16:35)
[2022-05-14] MEDS ORDERED: Dextrose 50% Abboject 50 ML SYRINGE SLOW IVP PRN (16:35)
[2022-05-14] MEDS ORDERED: Dextrose 5% in Water 1,000 ML IV PRN (16:35)
[2022-05-14] MEDS ORDERED: Furosemide 40 MG/4 ML VIAL ONE (16:48)
[2022-05-14] MEDS ORDERED: Nitroglycerin 2% Ointment 1 INCH/1 GM Packet ONE (16:48)
[2022-05-14] MEDS ORDERED: Loratadine 10 MG TAB PO PRN (17:15)
[2022-05-14 17:53] LABS: Bilirubin Negative (Negative); Blood, Urine Negative (Negative); Clarity Clear (Clear); Glucose, Urine (Dipstick) 500 mg/dL (Negative); Ketone, Urine Negative (Negative); Leukocyte Negative Leu/uL (Negative); Nitrite Negative (Negative); Protein, Urine (Dipstick) Negative (Neg-Trace); Specific Gravity, Urine 1.013 (1.002-1.036); Urobilinogen Normal mg/dL (Less than 2)
[2022-05-14 18:15] LABS: SARS-CoV-2 NAA Rapid Test Not Detected (NotDetected)
[2022-05-14] MEDS ORDERED: Flecainide 50 MG TAB PO SCH (21:00)
[2022-05-14] MEDS: Heparin 5,000 UNITS/ML VIAL SC SCH (21:42)
[2022-05-14] MEDS: Atorvastatin Calcium 10 MG TAB PO SCH (21:42)
[2022-05-14] MEDS: Oxybutynin 5 MG TAB PO SCH (21:42)
[2022-05-15 05:25] LABS: #Basophils 0.1 thou/uL (0.0-0.2); #Eosinphils 0.3 thou/uL (0.0-0.7); #Lymphocytes 0.9 thou/uL (1.20-3.40); #Monocytes 0.4 thou/uL (0.11-0.59); #Neutrophils 2.9 thou/uL (1.40-6.50); %Basophils 1.3 % (0.0-1.0); %Lymphocytes 19.8 % (21.0-51.0); %Monocytes 9.6 % (0.0-10.0); %Neutrophils 62.3 % (42.0-75.0); Mean Corpuscular HGB CONC 32.3 g/dL (32.0-36.0); Mean Corpuscular Hemoglobin 34.1 pg (27.0-31.0); Mean Platelet Volume 7.8 fL (7.4-10.4); Platelet Count 93 10x3/uL (130-400); RBC Distribution Width 16.3 % (11.5-14.5); Red Blood Cell (RBC) Count 2.92 mill/uL (4.20-5.40); White Blood Cell (WBC) Count 4.6 10x3/uL (4.8-10.8)
[2022-05-15 05:26] LABS: Hemoglobin A1c 4.6 % (4.0-6.0)
[2022-05-15 05:44] LABS: Anion Gap 12 mmol/L (10-20); BUN (Urea Nitrogen) 14 mg/dL (9.8-20.1); Calc. Creatinine Clearance 117 mL/min (70-130); Calcium 8.4 mg/dL (7.8-10.44); Carbon Dioxide 22 mmol/L (23-31); Chloride 110 mmol/L (98-107); Estimated GFR 46; Glucose 94 mg/dL (80-115); Sodium 140 mmol/L (136-145)
[2022-05-15] MEDS: Furosemide 100 MG/10 ML VIAL SLOW IVP SCH ×2 (07:01→16:28)
[2022-05-15] MEDS: Flecainide 50 MG TAB PO SCH ×2 (08:59→21:13)
[2022-05-15] MEDS: Oxybutynin 5 MG TAB PO SCH ×2 (08:59→21:13)
[2022-05-15] MEDS: Spironolactone 25 MG TAB PO SCH (09:00)
[2022-05-15] MEDS: Empagliflozin 10 MG TAB PO SCH (09:00)
[2022-05-15] MEDS: Aspirin 81 mg Enteric Coated Tablet PO SCH (09:00)
[2022-05-15] MEDS: Cholecalciferol 1,000 UNITS (25 MCG) TAB PO SCH (09:00)
[2022-05-15] MEDS: Clopidogrel Bisulfate 75 MG TAB PO SCH (09:00)
[2022-05-15] MEDS: Heparin 5,000 UNITS/ML VIAL SC SCH ×3 (10:19→21:13)
[2022-05-15 18:02] VITALS: BMI 59.1
[2022-05-15] MEDS: Atorvastatin Calcium 10 MG TAB PO SCH (21:13)
[2022-05-16] MEDS: Furosemide 100 MG/10 ML VIAL SLOW IVP SCH (06:24)
[2022-05-16] MEDS ORDERED: Acetaminophen 325 MG TAB PO PRN (07:49)
[2022-05-16 07:58] LABS: Anion Gap 14 mmol/L (10-20); BUN (Urea Nitrogen) 15 mg/dL (9.8-20.1); Calc. Creatinine Clearance 108 mL/min (70-130); Calcium 8.7 mg/dL (7.8-10.44); Carbon Dioxide 23 mmol/L (23-31); Chloride 106 mmol/L (98-107); Estimated GFR 44; Glucose 140 mg/dL (80-115); Potassium 3.8 mmol/L (3.5-5.1); Sodium 139 mmol/L (136-145)
[2022-05-16 07:59] LABS: Hemoglobin 10.8 g/dL (12.0-16.0); Mean Corpuscular HGB CONC 32.4 g/dL (32.0-36.0); Mean Corpuscular Hemoglobin 33.7 pg (27.0-31.0); Mean Platelet Volume 7.9 fL (7.4-10.4); Platelet Count 95 10x3/uL (130-400); Red Blood Cell (RBC) Count 3.19 mill/uL (4.20-5.40); White Blood Cell (WBC) Count 3.2 10x3/uL (4.8-10.8)
[2022-05-16] MEDS: Aspirin 81 mg Enteric Coated Tablet PO SCH (08:38)
[2022-05-16] MEDS: Cholecalciferol 1,000 UNITS (25 MCG) TAB PO SCH (08:39)
[2022-05-16] MEDS: Clopidogrel Bisulfate 75 MG TAB PO SCH (08:40)
[2022-05-16] MEDS: Empagliflozin 10 MG TAB PO SCH (08:41)
[2022-05-16] MEDS: Flecainide 50 MG TAB PO SCH (08:41)
[2022-05-16] MEDS: Heparin 5,000 UNITS/ML VIAL SC SCH (08:42)
[2022-05-16] MEDS: Spironolactone 25 MG TAB PO SCH (08:43)
[2022-05-16] MEDS: Oxybutynin 5 MG TAB PO SCH (08:43)
[2022-05-16 11:03] LABS: #Eosinphils 0.2 thou/uL (0.0-0.7); #Lymphocytes 0.7 thou/uL (1.20-3.40); #Monocytes 0.2 thou/uL (0.11-0.59); %Basophils 1.4 % (0.0-1.0); %Eosinophils 7.3 % (0.0-10.0); %Lymphocytes 22.3 % (21.0-51.0); %Monocytes 6.2 % (0.0-10.0); %Neutrophils 62.8 % (42.0-75.0); MDiff Complete? YES; Ovalocytes SLIGHT = 2-5 cells (100X) (0-1/hpf); Platelet Morphology Comment Appears Decreased
[2022-05-16 12:14] VITALS: BP 123/60; TEMP 97.7
== END 2022-05-16 14:00 | disposition home or self-care (01) | DRG 291 ==
LOC: SUATTDRO 13:06 → ERS 13:06 → 2NO 18:30
PROVIDERS: ADMIT Family Medicine; ATTEND Family Medicine
PROC: 5A09357 Assistance with Respiratory Ventilation, Less than 24 Consecutive Hours, Continuous Positive Airway Pressure (ICD-10-PCS; principal; 2022-05-16)
DX: I11.0 Hypertensive heart disease with heart failure (principal); I50.33 Acute on chronic diastolic (congestive) heart failure; D61.818 Other pancytopenia; G47.33 Obstructive sleep apnea (adult) (pediatric); M19.90 Unspecified osteoarthritis, unspecified site; E11.9 Type 2 diabetes mellitus without complications; Z96.653 Presence of artificial knee joint, bilateral; N17.9 Acute kidney failure, unspecified; I48.91 Unspecified atrial fibrillation; J44.9 Chronic obstructive pulmonary disease, unspecified; K74.60 Unspecified cirrhosis of liver; E66.01 Morbid (severe) obesity due to excess calories; Z20.822 Contact with and (suspected) exposure to COVID-19; Z68.43 Body mass index [BMI] 50.0-59.9, adult; Z86.73 Personal history of transient ischemic attack (TIA), and cerebral infarction without residual deficits; Z88.1 Allergy status to other antibiotic agents; Z88.8 Allergy status to other drugs, medicaments and biological substances; Z79.82 Long term (current) use of aspirin; Z79.4 Long term (current) use of insulin; Z79.899 Other long term (current) drug therapy; Z87.891 Personal history of nicotine dependence; Z90.49 Acquired absence of other specified parts of digestive tract; Z90.710 Acquired absence of both cervix and uterus
CPT/HCPCS: 36415; 36416; 71045; 71275; 80048; 80053; 81003; 83036; 83735; 83880; 84443; 84484; 85025; 85379; 93005; 94660; 96374; 97139; J1644; J1940; Q9967; U0002

== ENCOUNTER 2022-05-18 17:20 | Emergency (ER) | payer OTHER ==
[2022-05-18 19:00] LABS: #Eosinphils 0.3 thou/uL (0.0-0.7); #Lymphocytes 0.8 thou/uL (1.20-3.40); #Monocytes 0.3 thou/uL (0.11-0.59); #Neutrophils 2.9 thou/uL (1.40-6.50); %Basophils 1.1 % (0.0-1.0); %Eosinophils 7.1 % (0.0-10.0); %Lymphocytes 18.4 % (21.0-51.0); %Monocytes 6.5 % (0.0-10.0); Hemoglobin 11.1 g/dL (12.0-16.0); Mean Corpuscular HGB CONC 32.9 g/dL (32.0-36.0); Mean Corpuscular Hemoglobin 33.9 pg (27.0-31.0); Mean Platelet Volume 8.2 fL (7.4-10.4); Platelet Count 89 10x3/uL (130-400); RBC Distribution Width 15.7 % (11.5-14.5); Red Blood Cell (RBC) Count 3.27 mill/uL (4.20-5.40); White Blood Cell (WBC) Count 4.3 10x3/uL (4.8-10.8)
[2022-05-18 19:22] LABS: ALT (SGPT) 17 U/L (8-55); AST (SGOT) 37 U/L (5-34); Albumin 3.4 g/dL (3.4-4.8); Alkaline Phosphatase 223 U/L (40-110); Anion Gap 11 mmol/L (10-20); BUN (Urea Nitrogen) 16 mg/dL (9.8-20.1); Bilirubin, Total 1.6 mg/dL (0.2-1.2); Calc. Creatinine Clearance 0 mL/min (70-130); Carbon Dioxide 27 mmol/L (23-31); Chloride 108 mmol/L (98-107); Estimated GFR 47; Globulin 3.6 g/dL (2.4-3.5); Glucose 97 mg/dL (80-115); Potassium 3.7 mmol/L (3.5-5.1); Sodium 142 mmol/L (136-145)
== END 2022-05-18 22:57 | disposition home or self-care (01) ==
LOC: ERS 17:20
DX: R06.02 Shortness of breath (principal); D72.819 Decreased white blood cell count, unspecified; E11.9 Type 2 diabetes mellitus without complications; I11.0 Hypertensive heart disease with heart failure; I50.9 Heart failure, unspecified; Z79.4 Long term (current) use of insulin; Z79.82 Long term (current) use of aspirin; Z79.899 Other long term (current) drug therapy; Z79.84 Long term (current) use of oral hypoglycemic drugs
CPT/HCPCS: 36415; 71045; 80053; 83880; 84484; 85025; 93005

== ENCOUNTER 2022-10-20 00:22 | Emergency (ER) | payer OTHER ==
[2022-10-20] MEDS ORDERED: Acetaminophen 500 MG TAB ONE (01:05)
[2022-10-20 01:28] LABS: #Basophils 0.1 thou/uL (0.0-0.2); #Eosinphils 0.2 thou/uL (0.0-0.7); #Monocytes 0.3 thou/uL (0.11-0.59); #Neutrophils 4.1 thou/uL (1.40-6.50); %Basophils 1.3 % (0.0-1.0); %Eosinophils 4.4 % (0.0-10.0); %Lymphocytes 13.1 % (21.0-51.0); Hemoglobin 9.9 g/dL (12.0-16.0); Mean Corpuscular HGB CONC 33.4 g/dL (32.0-36.0); Mean Corpuscular Hemoglobin 34.1 pg (27.0-31.0); Mean Corpuscular Volume 102.1 fl (78.0-98.0); Platelet Count 117 10x3/uL (130-400); RBC Distribution Width 15.9 % (11.5-14.5); White Blood Cell (WBC) Count 5.5 10x3/uL (4.8-10.8)
[2022-10-20 01:39] LABS: INR-International Normal Ratio 1.2; PTT 33.3 sec (22.9-36.1); Prothrombin Time 15.5 sec (12.0-14.7)
[2022-10-20 01:49] LABS: ALT (SGPT) 24 U/L (8-55); AST (SGOT) 37 U/L (5-34); Albumin 3.4 g/dL (3.4-4.8); Alkaline Phosphatase 327 U/L (40-110); Anion Gap 14 mmol/L (10-20); BUN (Urea Nitrogen) 21 mg/dL (9.8-20.1); Calc. Creatinine Clearance 0 mL/min (70-130); Calcium 9.2 mg/dL (7.8-10.44); Carbon Dioxide 23 mmol/L (23-31); Chloride 105 mmol/L (98-107); Estimated GFR 30; Globulin 3.9 g/dL (2.4-3.5); Glucose 244 mg/dL (80-115); Magnesium 1.9 mg/dL (1.6-2.6); Potassium 3.7 mmol/L (3.5-5.1); Protein, Total 7.3 g/dL (5.8-8.1); Sodium 138 mmol/L (136-145)
== END 2022-10-20 03:04 | disposition home or self-care (01) ==
LOC: ERS 00:22
DX: R53.1 Weakness (principal); I11.0 Hypertensive heart disease with heart failure; I50.9 Heart failure, unspecified; E78.5 Hyperlipidemia, unspecified; Z79.82 Long term (current) use of aspirin; Z79.899 Other long term (current) drug therapy
CPT/HCPCS: 70450; 71045; 80053; 83735; 83880; 84484; 85025; 85610; 85730; 93005

== ENCOUNTER 2022-10-25 17:34 | Emergency (ER) | payer OTHER ==
[2022-10-25] MEDS ORDERED: Aspirin Chewable 81 MG TAB ONE (18:06)
[2022-10-25 18:40] LABS: #Basophils 0.1 thou/uL (0.0-0.2); #Eosinphils 0.4 thou/uL (0.0-0.7); #Monocytes 0.3 thou/uL (0.11-0.59); #Neutrophils 5.1 thou/uL (1.40-6.50); %Basophils 0.8 % (0.0-1.0); %Eosinophils 6.3 % (0.0-10.0); %Lymphocytes 9.9 % (21.0-51.0); %Monocytes 4.8 % (0.0-10.0); %Neutrophils 77.9 % (42.0-75.0); Hemoglobin 10.6 g/dL (12.0-16.0); Mean Corpuscular HGB CONC 32.9 g/dL (32.0-36.0); Mean Corpuscular Hemoglobin 34.4 pg (27.0-31.0); Mean Corpuscular Volume 104.5 fl (78.0-98.0); Mean Platelet Volume 11.9 fL (7.4-10.4); Platelet Count 115 10x3/uL (130-400); RBC Distribution Width 15.8 % (11.5-14.5); Red Blood Cell (RBC) Count 3.08 mill/uL (4.20-5.40); White Blood Cell (WBC) Count 6.5 10x3/uL (4.8-10.8)
[2022-10-25 19:04] LABS: ALT (SGPT) 16 U/L (8-55); AST (SGOT) 33 U/L (5-34); Albumin 3.5 g/dL (3.4-4.8); Alkaline Phosphatase 273 U/L (40-110); Anion Gap 18 mmol/L (10-20); BUN (Urea Nitrogen) 13 mg/dL (9.8-20.1); Bilirubin, Total 1.8 mg/dL (0.2-1.2); CK (CPK) 42 U/L (29-168); Calc. Creatinine Clearance 0 mL/min (70-130); Calcium 8.2 mg/dL (7.8-10.44); Carbon Dioxide 18 mmol/L (23-31); Chloride 107 mmol/L (98-107); Estimated GFR 40; Globulin 4.1 g/dL (2.4-3.5); Glucose 165 mg/dL (80-115); Potassium 3.5 mmol/L (3.5-5.1); Protein, Total 7.6 g/dL (5.8-8.1); Sodium 139 mmol/L (136-145)
[2022-10-25] MEDS ORDERED: fentaNYL 50 mcg/mL 1 mL Vial ONE (20:01)
== END 2022-10-25 22:15 | disposition home or self-care (01) ==
LOC: ERS 17:34
DX: R07.9 Chest pain, unspecified (principal); R53.1 Weakness; I11.0 Hypertensive heart disease with heart failure; I50.9 Heart failure, unspecified; E78.5 Hyperlipidemia, unspecified; Z79.899 Other long term (current) drug therapy; Z79.82 Long term (current) use of aspirin
CPT/HCPCS: 71045; 80053; 82550; 83880; 84484; 85025; 93005; J3010; 96374

== ENCOUNTER 2022-11-09 07:12 | Emergency (ER) | payer OTHER ==
[2022-11-09 07:46] LABS: #Basophils 0.1 thou/uL (0.0-0.2); #Monocytes 0.4 thou/uL (0.11-0.59); %Eosinophils 0.6 % (0.0-10.0); %Monocytes 5.4 % (0.0-10.0); %Neutrophils 84.6 % (42.0-75.0); Hematocrit 34.9 % (36.0-47.0); Hemoglobin 11.4 g/dL (12.0-16.0); Mean Corpuscular HGB CONC 32.7 g/dL (32.0-36.0); Mean Corpuscular Hemoglobin 33.9 pg (27.0-31.0); Mean Corpuscular Volume 103.9 fl (78.0-98.0); Mean Platelet Volume 10.5 fL (7.4-10.4); Platelet Count 128 10x3/uL (130-400); RBC Distribution Width 14.8 % (11.5-14.5); Red Blood Cell (RBC) Count 3.36 mill/uL (4.20-5.40)
[2022-11-09 08:09] LABS: ALT (SGPT) 10 U/L (8-55); AST (SGOT) 26 U/L (5-34); Albumin 3.1 g/dL (3.4-4.8); Alkaline Phosphatase 230 U/L (40-110); Anion Gap 17 mmol/L (10-20); BUN (Urea Nitrogen) 18 mg/dL (9.8-20.1); Bilirubin, Total 1.6 mg/dL (0.2-1.2); Calc. Creatinine Clearance 0 mL/min (70-130); Calcium 8.4 mg/dL (7.8-10.44); Carbon Dioxide 18 mmol/L (23-31); Chloride 103 mmol/L (98-107); Estimated GFR 37; Globulin 4.2 g/dL (2.4-3.5); Glucose 236 mg/dL (80-115); Magnesium 1.8 mg/dL (1.6-2.6); Potassium 3.9 mmol/L (3.5-5.1); Protein, Total 7.3 g/dL (5.8-8.1); Sodium 134 mmol/L (136-145)
[2022-11-09 08:14] LABS: Troponin I Less than 0.010 ng/mL (< 0.028)
[2022-11-09 08:43] LABS: SARS-CoV-2 NAA Rapid Test DETECTED (NotDetected)
[2022-11-09] MEDS ORDERED: Iopamidol-370 76% 500 ML MDV (1 ML CHARGE) ONE (09:36)
[2022-11-09 11:20] LABS: Bacteria/HPF 2+ HPF (None Seen); Bilirubin Negative (Negative); Blood, Urine Negative (Negative); CAUTI Indications for Culture Fever or rigors; Clarity Clear (Clear); Glucose, Urine (Dipstick) Normal (Negative); Ketone, Urine Negative (Negative); Leukocyte 75 Leu/uL (Negative); Nitrite 1+ (Negative); Protein, Urine (Dipstick) 30 mg/dL (Neg-Trace); RBC/HPF None Seen HPF (0-3); Specific Gravity, Urine 1.044 (1.002-1.036); pH, Urine 5.5 (5.0-9.0)
[2022-11-09 11:35] LABS: Urine Culture Reflex No No
== END 2022-11-09 11:46 | disposition home or self-care (01) ==
LOC: ERS 07:12
DX: U07.1 COVID-19 (principal); I13.0 Hypertensive heart and chronic kidney disease with heart failure and stage 1 through stage 4 chronic kidney disease, or unspecified chronic kidney disease; I50.9 Heart failure, unspecified; N18.9 Chronic kidney disease, unspecified; E78.5 Hyperlipidemia, unspecified; R79.1 Abnormal coagulation profile; E11.22 Type 2 diabetes mellitus with diabetic chronic kidney disease; Z86.73 Personal history of transient ischemic attack (TIA), and cerebral infarction without residual deficits; Z79.82 Long term (current) use of aspirin; Z79.899 Other long term (current) drug therapy
CPT/HCPCS: 0240U; 71045; 71275; 81001; 83605; 83735; 83880; 84484; 85379; 87040; 93005; 94760; 96360; 99285; 36415; 36416; 80053; 84443; 85025; Q9967

== ENCOUNTER 2022-11-20 11:46 | Emergency (ER) | payer OTHER | END 2022-11-20 13:24 | disposition home or self-care (01) | LOC: ERS 11:46 | DX: M19.041 Primary osteoarthritis, right hand (principal); I11.0 Hypertensive heart disease with heart failure; I50.9 Heart failure, unspecified; E11.9 Type 2 diabetes mellitus without complications; E78.5 Hyperlipidemia, unspecified; Z79.82 Long term (current) use of aspirin; Z79.899 Other long term (current) drug therapy ==

== ENCOUNTER 2022-11-25 02:03 | Emergency (ER) | payer OTHER ==
[2022-11-25 02:56] LABS: #Basophils 0.1 thou/uL (0.0-0.2); #Eosinphils 0.3 thou/uL (0.0-0.7); #Monocytes 0.4 thou/uL (0.11-0.59); #Neutrophils 3.8 thou/uL (1.40-6.50); %Basophils 1.7 % (0.0-1.0); %Lymphocytes 21.3 % (21.0-51.0); %Monocytes 6.4 % (0.0-10.0); %Neutrophils 65.3 % (42.0-75.0); Hematocrit 29.1 % (36.0-47.0); Hemoglobin 10.9 g/dL (12.0-16.0); Mean Corpuscular HGB CONC 37.5 g/dL (32.0-36.0); Mean Corpuscular Hemoglobin 41.4 pg (27.0-31.0); Mean Corpuscular Volume 110.6 fl (78.0-98.0); Platelet Count 112 10x3/uL (130-400); RBC Distribution Width 18.1 % (11.5-14.5); Red Blood Cell (RBC) Count 2.63 mill/uL (4.20-5.40); White Blood Cell (WBC) Count 5.8 10x3/uL (4.8-10.8)
[2022-11-25 03:17] LABS: ALT (SGPT) 16 U/L (8-55); AST (SGOT) 35 U/L (5-34); Albumin 3.2 g/dL (3.4-4.8); Alkaline Phosphatase 224 U/L (40-110); Anion Gap 16 mmol/L (10-20); BUN (Urea Nitrogen) 20 mg/dL (9.8-20.1); Bilirubin, Total 2.6 mg/dL (0.2-1.2); Calc. Creatinine Clearance 0 mL/min (70-130); Calcium 8.9 mg/dL (7.8-10.44); Carbon Dioxide 18 mmol/L (23-31); Chloride 107 mmol/L (98-107); Estimated GFR 45; Glucose 139 mg/dL (80-115); Lipase 22 U/L (8-78); Potassium 3.7 mmol/L (3.5-5.1); Protein, Total 7.2 g/dL (5.8-8.1); Sodium 137 mmol/L (136-145)
[2022-11-25 03:21] LABS: Troponin I 0.014 ng/mL (< 0.028)
[2022-11-25 03:45] LABS: Anisocytosis SLIGHT = 6-15 cells HPF (0-5); CellaVision Operator ID lab.abc; Macrocytosis SLIGHT = 6-15 cells HPF (0-5); Platelet Adequacy Comment Platelets Decreased; Polychromasia SLIGHT = 2-3 cells HPF (0-2); Smudge Cells 13.9 %
[2022-11-25] MEDS ORDERED: diphenhydrAMINE 50 MG/ML VIAL ONE (06:04)
[2022-11-25] MEDS ORDERED: Famotidine/PF 20 mg/2ml Vial ONE (06:04)
[2022-11-25 06:49] LABS: Troponin I 0.013 ng/mL (< 0.028)
== END 2022-11-25 07:30 | disposition home or self-care (01) ==
LOC: ERS 02:03
DX: T78.40XA Allergy, unspecified, initial encounter (principal); E11.9 Type 2 diabetes mellitus without complications; I11.0 Hypertensive heart disease with heart failure; I50.9 Heart failure, unspecified; E78.5 Hyperlipidemia, unspecified; Z79.899 Other long term (current) drug therapy; Z79.82 Long term (current) use of aspirin
CPT/HCPCS: 36415; 71045; 80053; 83690; 83880; 84484; 85025; 93005; 96374; 96375; J1200; S0028

== ENCOUNTER 2023-01-09 13:32 | Emergency (ER) | payer OTHER | END 2023-01-09 15:06 | disposition home or self-care (01) | LOC: ERS 13:32 | DX: M65.351 Trigger finger, right little finger (principal); I48.91 Unspecified atrial fibrillation; I11.0 Hypertensive heart disease with heart failure; I50.9 Heart failure, unspecified; E11.9 Type 2 diabetes mellitus without complications; E78.5 Hyperlipidemia, unspecified; Z79.4 Long term (current) use of insulin; Z79.899 Other long term (current) drug therapy; Z79.82 Long term (current) use of aspirin | CPT/HCPCS: 99283 ==

== ENCOUNTER 2023-02-28 15:54 | Emergency (ER) | payer OTHER | END 2023-02-28 16:51 | disposition home or self-care (01) | LOC: ERS 15:54 | DX: S90.31XA Contusion of right foot, initial encounter (principal); S90.01XA Contusion of right ankle, initial encounter; I11.0 Hypertensive heart disease with heart failure; I50.9 Heart failure, unspecified; I48.91 Unspecified atrial fibrillation; E11.9 Type 2 diabetes mellitus without complications; E78.5 Hyperlipidemia, unspecified; W20.8XXA Other cause of strike by thrown, projected or falling object, initial encounter; Z79.899 Other long term (current) drug therapy; Z79.4 Long term (current) use of insulin; Z79.82 Long term (current) use of aspirin; Z86.73 Personal history of transient ischemic attack (TIA), and cerebral infarction without residual deficits ==

== ENCOUNTER 2023-03-19 16:37 | Emergency (ER) | payer OTHER ==
[~2023-03-19 16:37] MED LIST changes: -Iopamidol-370 76% 500 ML 1 ML ONE; +Iopamidol-370 76% 500 ML MDV (1 ML CHARGE) ONE
[2023-03-19] MEDS ORDERED: Ibuprofen 800 MG TAB ONE (17:10)
[2023-03-19 17:23] LABS: #Eosinphils 0.1 thou/uL (0.0-0.7); #Monocytes 0.1 thou/uL (0.11-0.59); #Neutrophils 1.5 thou/uL (1.40-6.50); %Eosinophils 2.5 % (0.0-10.0); %Lymphocytes 12.3 % (21.0-51.0); %Monocytes 6.9 % (0.0-10.0); %Neutrophils 75.3 % (42.0-75.0); Hematocrit 31.2 % (36.0-47.0); Hemoglobin 10.6 g/dL (12.0-16.0); Mean Corpuscular Hemoglobin 34.6 pg (27.0-31.0); RBC Distribution Width 15.1 % (11.5-14.5); Red Blood Cell (RBC) Count 3.06 mill/uL (4.20-5.40)
[2023-03-19 17:32] LABS: Platelet Count 77 10x3/uL (130-400)
[2023-03-19 17:46] LABS: ALT (SGPT) 18 U/L (8-55); AST (SGOT) 45 U/L (5-34); Albumin 3.3 g/dL (3.4-4.8); Alkaline Phosphatase 188 U/L (40-110); Anion Gap 10 mmol/L (10-20); BUN (Urea Nitrogen) 17 mg/dL (9.8-20.1); Bilirubin, Total 1.8 mg/dL (0.2-1.2); Calc. Creatinine Clearance 0 mL/min (70-130); Calcium 8.6 mg/dL (7.8-10.44); Carbon Dioxide 22 mmol/L (23-31); Chloride 107 mmol/L (98-107); Estimated GFR 58; Globulin 3.5 g/dL (2.4-3.5); Glucose 139 mg/dL (80-115); Lipase 39 U/L (8-78); Potassium 3.6 mmol/L (3.5-5.1); Protein, Total 6.8 g/dL (5.8-8.1); Sodium 135 mmol/L (136-145)
[2023-03-19 17:50] LABS: Troponin I Less than 0.010 ng/mL (< 0.028)
[2023-03-19 18:01] LABS: SARS-CoV-2 NAA Rapid Test Not Detected (NotDetected)
== END 2023-03-19 19:13 | disposition home or self-care (01) ==
LOC: ERS 16:37
DX: J10.1 Influenza due to other identified influenza virus with other respiratory manifestations (principal); M79.10 Myalgia, unspecified site; J90 Pleural effusion, not elsewhere classified; E11.9 Type 2 diabetes mellitus without complications; E78.5 Hyperlipidemia, unspecified; I11.0 Hypertensive heart disease with heart failure; I50.9 Heart failure, unspecified; Z86.73 Personal history of transient ischemic attack (TIA), and cerebral infarction without residual deficits; Z79.82 Long term (current) use of aspirin; Z79.4 Long term (current) use of insulin; Z79.899 Other long term (current) drug therapy; Z79.84 Long term (current) use of oral hypoglycemic drugs; Z79.02 Long term (current) use of antithrombotics/antiplatelets
CPT/HCPCS: 0240U; 71045; 71275; 80053; 83605; 83690; 83880; 84484; 85025; 85379; 87040; 93005; 36415; Q9967

== ENCOUNTER 2023-04-15 05:19 | Emergency (ER) | payer OTHER ==
[2023-04-15 05:57] LABS: #Basophils 0.1 thou/uL (0.0-0.2); #Eosinphils 0.2 thou/uL (0.0-0.7); #Monocytes 0.3 thou/uL (0.11-0.59); #Neutrophils 4.5 thou/uL (1.40-6.50); %Basophils 1.1 % (0.0-1.0); %Eosinophils 2.8 % (0.0-10.0); %Lymphocytes 7.9 % (21.0-51.0); %Monocytes 4.7 % (0.0-10.0); %Neutrophils 83.3 % (42.0-75.0); Hematocrit 32.7 % (36.0-47.0); Hemoglobin 10.9 g/dL (12.0-16.0); Mean Corpuscular HGB CONC 33.3 g/dL (32.0-36.0); Mean Corpuscular Hemoglobin 34.5 pg (27.0-31.0); Mean Corpuscular Volume 103.5 fl (78.0-98.0); Mean Platelet Volume 9.9 fL (7.4-10.4); Platelet Count 117 10x3/uL (130-400); RBC Distribution Width 15.1 % (11.5-14.5); Red Blood Cell (RBC) Count 3.16 mill/uL (4.20-5.40); White Blood Cell (WBC) Count 5.3 10x3/uL (4.8-10.8)
[2023-04-15 06:14] LABS: Bilirubin Negative (Negative); Blood, Urine Trace (Negative); CAUTI Indications for Culture Pelvic or flank pain; Clarity Turbid (Clear); Glucose, Urine (Dipstick) Normal (Negative); Ketone, Urine Negative (Negative); Leukocyte Negative Leu/uL (Negative); Nitrite Negative (Negative); Protein, Urine (Dipstick) 10 mg/dL (Neg-Trace); RBC/HPF 0-3 HPF (0-3); Specific Gravity, Urine 1.024 (1.002-1.036); Urobilinogen 6 mg/dL (Less than 2); pH, Urine 5.5 (5.0-9.0)
[2023-04-15 06:15] LABS: Bacteria/HPF 1+ HPF (None Seen)
[2023-04-15 06:16] LABS: Urine Culture Reflex No No
[2023-04-15 06:17] LABS: ALT (SGPT) 19 U/L (8-55); AST (SGOT) 27 U/L (5-34); Albumin 3.5 g/dL (3.4-4.8); Alkaline Phosphatase 247 U/L (40-110); Anion Gap 13 mmol/L (10-20); BUN (Urea Nitrogen) 13 mg/dL (9.8-20.1); Bilirubin, Total 4.8 mg/dL (0.2-1.2); Calc. Creatinine Clearance 0 mL/min (70-130); Calcium 8.9 mg/dL (7.8-10.44); Carbon Dioxide 23 mmol/L (23-31); Chloride 106 mmol/L (98-107); Estimated GFR 55; Globulin 3.7 g/dL (2.4-3.5); Glucose 199 mg/dL (80-115); Lipase 18 U/L (8-78); Protein, Total 7.2 g/dL (5.8-8.1); Sodium 138 mmol/L (136-145)
[2023-04-15] MEDS ORDERED: Acetaminophen 325 MG TAB ONE (06:17)
[2023-04-15 06:21] LABS: Troponin I Less than 0.010 ng/mL (< 0.028)
[2023-04-15 07:17] LABS: Anisocytosis SLIGHT = 6-15 cells HPF (0-5); CellaVision Operator ID LAB.JMM; Large Platelets 6.1 % (0-5); Macrocytosis SLIGHT = 6-15 cells HPF (0-5); Platelet Adequacy Comment Platelets Decreased; Polychromasia SLIGHT = 2-3 cells HPF (0-2); Smudge Cells 14.1 %
== END 2023-04-15 09:19 | disposition home or self-care (01) ==
LOC: ERS 05:19
DX: N39.0 Urinary tract infection, site not specified (principal); E80.7 Disorder of bilirubin metabolism, unspecified; R10.11 Right upper quadrant pain; R10.12 Left upper quadrant pain; I11.0 Hypertensive heart disease with heart failure; I50.9 Heart failure, unspecified; E11.9 Type 2 diabetes mellitus without complications; I48.91 Unspecified atrial fibrillation; E78.5 Hyperlipidemia, unspecified; Z87.891 Personal history of nicotine dependence; Z86.73 Personal history of transient ischemic attack (TIA), and cerebral infarction without residual deficits; Z79.4 Long term (current) use of insulin; Z79.82 Long term (current) use of aspirin; Z79.899 Other long term (current) drug therapy
CPT/HCPCS: 36415; 71045; 74176; 80053; 81001; 83690; 83880; 84484; 85025; 87086; 93005

== ENCOUNTER 2023-04-16 09:39 | Emergency (ER) | payer OTHER ==
[2023-04-16] MEDS ORDERED: Ketorolac Tromethamine 30 MG (1 mL) VIAL ONE (10:25)
[2023-04-16] MEDS ORDERED: Ondansetron PF 4 MG/2 ML Vial ONE (10:25)
[2023-04-16 11:07] LABS: #Eosinphils 0.1 thou/uL (0.0-0.7); #Monocytes 0.2 thou/uL (0.11-0.59); #Neutrophils 2.1 thou/uL (1.40-6.50); %Eosinophils 4.1 % (0.0-10.0); %Lymphocytes 15.5 % (21.0-51.0); %Monocytes 6.8 % (0.0-10.0); %Neutrophils 72.3 % (42.0-75.0); Hemoglobin 9.7 g/dL (12.0-16.0); Mean Corpuscular HGB CONC 33.4 g/dL (32.0-36.0); Mean Corpuscular Hemoglobin 34.3 pg (27.0-31.0); Mean Corpuscular Volume 102.5 fl (78.0-98.0); RBC Distribution Width 15.1 % (11.5-14.5); Red Blood Cell (RBC) Count 2.83 mill/uL (4.20-5.40)
[2023-04-16 11:09] LABS: Platelet Count 80 10x3/uL (130-400)
[2023-04-16 11:20] LABS: INR-International Normal Ratio 1.2; PTT 35.5 sec (22.9-36.1); Prothrombin Time 15.4 sec (12.0-14.7)
[2023-04-16 11:34] LABS: ALT (SGPT) 16 U/L (8-55); AST (SGOT) 24 U/L (5-34); Albumin 3.1 g/dL (3.4-4.8); Alkaline Phosphatase 208 U/L (40-110); Anion Gap 9 mmol/L (10-20); BUN (Urea Nitrogen) 15 mg/dL (9.8-20.1); Bilirubin, Total 2.5 mg/dL (0.2-1.2); Calc. Creatinine Clearance 0 mL/min (70-130); Calcium 8.4 mg/dL (7.8-10.44); Carbon Dioxide 25 mmol/L (23-31); Chloride 107 mmol/L (98-107); Estimated GFR 57; Globulin 3.5 g/dL (2.4-3.5); Glucose 183 mg/dL (80-115); Lipase 32 U/L (8-78); Potassium 3.7 mmol/L (3.5-5.1); Protein, Total 6.6 g/dL (5.8-8.1); Sodium 137 mmol/L (136-145)
[2023-04-16] MEDS ORDERED: Acetaminophen 500 MG TAB ONE (11:40)
[2023-04-16] MEDS ORDERED: Iopamidol-370 76% 500 ML MDV (1 ML CHARGE) ONE (12:36)
== END 2023-04-16 13:51 | disposition home or self-care (01) ==
LOC: ERS 09:39
DX: R10.12 Left upper quadrant pain (principal); I11.0 Hypertensive heart disease with heart failure; I50.9 Heart failure, unspecified; I48.91 Unspecified atrial fibrillation; E11.9 Type 2 diabetes mellitus without complications; E78.5 Hyperlipidemia, unspecified; Z79.82 Long term (current) use of aspirin; Z79.2 Long term (current) use of antibiotics; Z86.73 Personal history of transient ischemic attack (TIA), and cerebral infarction without residual deficits; Z79.899 Other long term (current) drug therapy
CPT/HCPCS: 71045; 74177; 80053; 83605; 83690; 85025; 85610; 85730; 93005; 96374; 96375; J1885; J2405; Q9967

== ENCOUNTER 2023-05-18 15:42 | Inpatient (IN) | payer OTHER, MEDICAID ==
[2023-05-18 16:27] LABS: #Eosinphils 0.2 thou/uL (0.0-0.7); #Monocytes 0.2 thou/uL (0.11-0.59); #Neutrophils 1.7 thou/uL (1.40-6.50); %Basophils 1.4 % (0.0-1.0); %Eosinophils 6.5 % (0.0-10.0); %Lymphocytes 25.4 % (21.0-51.0); %Monocytes 7.5 % (0.0-10.0); %Neutrophils 59.2 % (42.0-75.0); Hematocrit 31.7 % (36.0-47.0); Hemoglobin 10.6 g/dL (12.0-16.0); Mean Corpuscular HGB CONC 33.4 g/dL (32.0-36.0); Mean Corpuscular Hemoglobin 34.1 pg (27.0-31.0); Mean Corpuscular Volume 101.9 fl (78.0-98.0); Mean Platelet Volume 10.4 fL (7.4-10.4); RBC Distribution Width 15.3 % (11.5-14.5); Red Blood Cell (RBC) Count 3.11 mill/uL (4.20-5.40); White Blood Cell (WBC) Count 2.8 10x3/uL (4.8-10.8)
[2023-05-18 16:28] LABS: Platelet Count 75 10x3/uL (130-400)
[2023-05-18 16:50] LABS: ALT (SGPT) 13 U/L (8-55); AST (SGOT) 34 U/L (5-34); Albumin 3.3 g/dL (3.4-4.8); Alkaline Phosphatase 205 U/L (40-110); Anion Gap 11 mmol/L (10-20); BUN (Urea Nitrogen) 15 mg/dL (9.8-20.1); Bilirubin, Total 1.5 mg/dL (0.2-1.2); Calc. Creatinine Clearance 0 mL/min (70-130); Calcium 8.3 mg/dL (7.8-10.44); Carbon Dioxide 21 mmol/L (23-31); Chloride 110 mmol/L (98-107); Estimated GFR 59; Globulin 3.4 g/dL (2.4-3.5); Glucose 124 mg/dL (80-115); Potassium 3.8 mmol/L (3.5-5.1); Protein, Total 6.7 g/dL (5.8-8.1); Sodium 138 mmol/L (136-145)
[2023-05-18 16:55] LABS: Troponin I Less than 0.010 ng/mL (< 0.028)
[2023-05-18] MEDS ORDERED: Nitroglycerin 2% Ointment 1 INCH/1 GM Packet ONE (19:36)
[2023-05-18] MEDS ORDERED: Dextrose 50% Abboject 50 ML SYRINGE SLOW IVP PRN (21:11)
[2023-05-18] MEDS ORDERED: Dextrose 5% in Water 1,000 ML IV PRN (21:11)
[2023-05-18] MEDS ORDERED: Glucagon 1 MG/ML KIT IM PRN (21:11)
[2023-05-18] MEDS ORDERED: Ondansetron ODT 4 MG TAB PO PRN (21:18)
[2023-05-18] MEDS ORDERED: Acetaminophen 650 MG Suppository PR PRN (21:18)
[2023-05-18] MEDS ORDERED: Acetaminophen 325 MG TAB PO PRN (21:18)
[2023-05-18] MEDS ORDERED: HumaLOG 300 UNITS/3 ML VIAL SC PRN ×2 (21:18)
[2023-05-18] MEDS ORDERED: Ondansetron PF 4 MG/2 ML Vial IVP PRN (21:18)
[2023-05-18 22:48] LABS: Troponin I Less than 0.010 ng/mL (< 0.028)
[2023-05-19 02:17] LABS: Troponin I Less than 0.010 ng/mL (< 0.028)
[2023-05-19] MEDS: Nitroglycerin 0.4 MG TAB (25 Tab Bottle) SL PRN (04:18)
[2023-05-19] MEDS ORDERED: Nitroglycerin 0.4 MG TAB (25 Tab Bottle) ONE (04:22)
[2023-05-19] MEDS ORDERED: Morphine 2 MG/ML VIAL ONE (04:48)
[2023-05-19 04:51] LABS: #Eosinphils 0.2 thou/uL (0.0-0.7); #Monocytes 0.2 thou/uL (0.11-0.59); #Neutrophils 1.4 thou/uL (1.40-6.50); %Basophils 1.6 % (0.0-1.0); %Eosinophils 7.7 % (0.0-10.0); %Lymphocytes 27.1 % (21.0-51.0); %Monocytes 6.9 % (0.0-10.0); %Neutrophils 56.7 % (42.0-75.0); Hematocrit 32.1 % (36.0-47.0); Hemoglobin 10.6 g/dL (12.0-16.0); Mean Corpuscular Hemoglobin 34.1 pg (27.0-31.0); Mean Corpuscular Volume 103.2 fl (78.0-98.0); Mean Platelet Volume 11.2 fL (7.4-10.4); RBC Distribution Width 15.3 % (11.5-14.5); Red Blood Cell (RBC) Count 3.11 mill/uL (4.20-5.40); White Blood Cell (WBC) Count 2.5 10x3/uL (4.8-10.8)
[2023-05-19] MEDS: Morphine 2 MG/ML VIAL SLOW IVP SCH (05:05)
[2023-05-19 05:08] LABS: Platelet Count 66 10x3/uL (130-400)
[2023-05-19 05:14] LABS: Anion Gap 8 mmol/L (10-20); BUN (Urea Nitrogen) 15 mg/dL (9.8-20.1); Calc. Creatinine Clearance 113 mL/min (70-130); Calcium 8.3 mg/dL (7.8-10.44); Carbon Dioxide 26 mmol/L (23-31); Chloride 109 mmol/L (98-107); Estimated GFR 61; Glucose 114 mg/dL (80-115); Magnesium 1.8 mg/dL (1.6-2.6); Potassium 3.7 mmol/L (3.5-5.1); Sodium 139 mmol/L (136-145)
[2023-05-19] MEDS ORDERED: Mag-Al 1200 mg/1200 mg/30 ML UDCUP PO PRN (08:40)
[2023-05-19] MEDS ORDERED: HYDROcodone/Acetaminophen 5/325 mg Tablet PO PRN (08:41)
[2023-05-19] MEDS ORDERED: HYDROcodone/Acetaminophen 10/325 mg Tablet PO PRN (08:42)
[2023-05-19] MEDS ORDERED: Aspirin Chewable 81 MG TAB ONE (09:35)
[2023-05-19] MEDS ORDERED: Clopidogrel Bisulfate 75 MG TAB ONE (09:35)
[2023-05-19] MEDS: Aspirin Chewable 81 MG TAB PO SCH (10:41)
[2023-05-19] MEDS: Clopidogrel Bisulfate 75 MG TAB PO SCH (10:41)
[2023-05-19] MEDS: Flecainide 50 MG TAB PO SCH (15:49)
[2023-05-19] MEDS: Atorvastatin Calcium 10 MG TAB PO SCH (20:50)
[2023-05-20 10:07] VITALS: BMI 41.1
[2023-05-21 06:02] LABS: #Eosinphils 0.2 thou/uL (0.0-0.7); #Monocytes 0.2 thou/uL (0.11-0.59); #Neutrophils 1.9 thou/uL (1.40-6.50); %Basophils 1.3 % (0.0-1.0); %Lymphocytes 23.1 % (21.0-51.0); %Neutrophils 62.3 % (42.0-75.0); Hematocrit 31.4 % (36.0-47.0); Hemoglobin 10.8 g/dL (12.0-16.0); Mean Corpuscular HGB CONC 34.4 g/dL (32.0-36.0); Mean Corpuscular Hemoglobin 34.7 pg (27.0-31.0); Mean Platelet Volume 10.4 fL (7.4-10.4); RBC Distribution Width 14.9 % (11.5-14.5); Red Blood Cell (RBC) Count 3.11 mill/uL (4.20-5.40)
[2023-05-21 06:04] LABS: Platelet Count 69 10x3/uL (130-400)
[2023-05-21 06:35] LABS: Anion Gap 9 mmol/L (10-20); BUN (Urea Nitrogen) 17 mg/dL (9.8-20.1); Calc. Creatinine Clearance 79 mL/min (70-130); Calcium 8.8 mg/dL (7.8-10.44); Carbon Dioxide 24 mmol/L (23-31); Chloride 108 mmol/L (98-107); Estimated GFR 47; Glucose 130 mg/dL (80-115); Potassium 4.2 mmol/L (3.5-5.1); Sodium 137 mmol/L (136-145)
[2023-05-21] MEDS ORDERED: Regadenoson 0.4 MG/5 ML SYRINGE ONE (10:57)
[2023-05-21] MEDS: Sodium Chloride 0.9% 1,000 ML IV SCH (13:38)
[2023-05-21] MEDS: GoLYTELY 4,000 ml Bottle PO SCH (17:25)
[2023-05-22 04:07] LABS: #Basophils 0.1 thou/uL (0.0-0.2); #Eosinphils 0.2 thou/uL (0.0-0.7); #Monocytes 0.3 thou/uL (0.11-0.59); #Neutrophils 1.6 thou/uL (1.40-6.50); %Basophils 2.3 % (0.0-1.0); %Eosinophils 7.3 % (0.0-10.0); %Lymphocytes 26.6 % (21.0-51.0); %Monocytes 9.6 % (0.0-10.0); %Neutrophils 54.2 % (42.0-75.0); Hemoglobin 10.9 g/dL (12.0-16.0); Mean Corpuscular Hemoglobin 33.5 pg (27.0-31.0); Mean Corpuscular Volume 101.5 fl (78.0-98.0); RBC Distribution Width 14.8 % (11.5-14.5); Red Blood Cell (RBC) Count 3.25 mill/uL (4.20-5.40)
[2023-05-22 04:31] LABS: Platelet Count 70 10x3/uL (130-400)
[2023-05-22 05:08] LABS: Anion Gap 8 mmol/L (10-20); BUN (Urea Nitrogen) 15 mg/dL (9.8-20.1); Calc. Creatinine Clearance 82 mL/min (70-130); Calcium 8.6 mg/dL (7.8-10.44); Carbon Dioxide 27 mmol/L (23-31); Chloride 107 mmol/L (98-107); Estimated GFR 49; Glucose 117 mg/dL (80-115); Potassium 4.1 mmol/L (3.5-5.1); Sodium 138 mmol/L (136-145)
[2023-05-22] MEDS ORDERED: PROPOFOL 0 ML ONE (09:51)
[2023-05-22] MEDS ORDERED: Midazolam HCl 2 mg/2 ml Vial ONE (10:02)
[2023-05-22] MEDS ORDERED: KETAMINE 100 MG/ML (5ML VIAL) ONE (10:03)
[2023-05-22 15:53] VITALS: BP 141/64; TEMP 97.5
== END 2023-05-22 19:17 | disposition home or self-care (01) | DRG 313 ==
LOC: ERS 15:42 → ERHOLD 21:11 → 2SW 05-19 13:48 → OBSVTOIN 05-20 11:52
PROVIDERS: ADMIT Student in an Organized Health Care Education/Training Program; ATTEND Internal Medicine
PROC: 0DJ08ZZ Inspection of Upper Intestinal Tract, Via Natural or Artificial Opening Endoscopic (ICD-10-PCS; principal; 2023-05-22)
PROC: 0DJD8ZZ Inspection of Lower Intestinal Tract, Via Natural or Artificial Opening Endoscopic (ICD-10-PCS; 2023-05-22)
DX: R07.89 Other chest pain (principal); I50.32 Chronic diastolic (congestive) heart failure; D61.818 Other pancytopenia; Z68.41 Body mass index [BMI] 40.0-44.9, adult; I13.0 Hypertensive heart and chronic kidney disease with heart failure and stage 1 through stage 4 chronic kidney disease, or unspecified chronic kidney disease; E78.5 Hyperlipidemia, unspecified; Z96.643 Presence of artificial hip joint, bilateral; I48.91 Unspecified atrial fibrillation; K74.60 Unspecified cirrhosis of liver; K75.81 Nonalcoholic steatohepatitis (NASH); E66.01 Morbid (severe) obesity due to excess calories; I48.0 Paroxysmal atrial fibrillation; R63.4 Abnormal weight loss; N18.30 Chronic kidney disease, stage 3 unspecified; E11.22 Type 2 diabetes mellitus with diabetic chronic kidney disease; K44.9 Diaphragmatic hernia without obstruction or gangrene; K31.819 Angiodysplasia of stomach and duodenum without bleeding; Z98.890 Other specified postprocedural states; Z79.899 Other long term (current) drug therapy; Z88.8 Allergy status to other drugs, medicaments and biological substances; Z90.710 Acquired absence of both cervix and uterus; Z90.49 Acquired absence of other specified parts of digestive tract; Z86.73 Personal history of transient ischemic attack (TIA), and cerebral infarction without residual deficits
CPT/HCPCS: 36415; 36416; 71045; 78452; 80048; 80053; 83735; 83880; 84443; 84484; 85025; 93005; 93017; 96374; A9502; G0378; J2250; J2272; J2704; J2785; J7050

== ENCOUNTER 2023-05-28 08:06 | Outpatient (CLI) | payer OTHER | END 2023-05-28 08:07 | disposition home or self-care (01) | LOC: MRI 08:06 | PROVIDERS: ATTEND Physician Assistant Medical | DX: K74.60 Unspecified cirrhosis of liver (principal); R63.4 Abnormal weight loss; K76.6 Portal hypertension | CPT/HCPCS: 74183 ==

== ENCOUNTER 2023-06-03 11:53 | Emergency (ER) | payer OTHER | END 2023-06-03 13:09 | disposition home or self-care (01) | LOC: ERS 11:53 | DX: G89.18 Other acute postprocedural pain (principal); M79.641 Pain in right hand; I11.0 Hypertensive heart disease with heart failure; I50.9 Heart failure, unspecified; E11.9 Type 2 diabetes mellitus without complications; E78.5 Hyperlipidemia, unspecified; Z86.73 Personal history of transient ischemic attack (TIA), and cerebral infarction without residual deficits; Z79.82 Long term (current) use of aspirin; Z79.899 Other long term (current) drug therapy; Z79.4 Long term (current) use of insulin ==

== ENCOUNTER 2024-03-05 08:17 | Emergency (ER) | payer OTHER ==
[2024-03-05] MEDS ORDERED: Ketorolac Tromethamine 30 MG (1 mL) VIAL ONE (08:57)
== END 2024-03-05 10:16 | disposition home or self-care (01) ==
LOC: ERS 08:17
DX: M25.471 Effusion, right ankle (principal); E11.9 Type 2 diabetes mellitus without complications; I10 Essential (primary) hypertension; I48.91 Unspecified atrial fibrillation; I25.10 Atherosclerotic heart disease of native coronary artery without angina pectoris; Z86.73 Personal history of transient ischemic attack (TIA), and cerebral infarction without residual deficits; Z79.4 Long term (current) use of insulin; Z79.82 Long term (current) use of aspirin; Z79.02 Long term (current) use of antithrombotics/antiplatelets; Z79.899 Other long term (current) drug therapy; M79.661 Pain in right lower leg; R60.0 Localized edema
CPT/HCPCS: 73610; 93971; 96372; 99284; J1885

== ENCOUNTER 2024-09-26 16:36 | Observation (INO) | payer OTHER, MEDICAID ==
[2024-09-26] MEDS ORDERED: Droperidol 5 MG/2 ML VIAL ONE (17:50)
[2024-09-26 19:02] LABS: #Basophils 0.05 10x3/uL (0.0-0.2); #Eosinophils 0.20 10x3/uL (0.0-0.7); #Monocytes 0.25 10x3/uL (0.11-0.59); #Neutrophils 2.72 10x3/uL (1.40-6.50); %Basophils 1.3 % (0.0-1.0); %Eosinophils 5.0 % (0.0-10.0); %Lymphocytes 19.3 % (21.0-51.0); %Monocytes 6.3 % (0.0-10.0); %Neutrophils 68.1 % (42.0-75.0); Hematocrit 30.2 % (36.0-47.0); Hemoglobin 9.8 g/dL (12.0-16.0); Mean Corpuscular Hemoglobin 30.1 pg (27.0-31.0); Mean Corpuscular Volume 92.6 fL (78.0-98.0); Platelet Count 98 10x3/uL (130-400); Red Blood Cell (RBC) Count 3.26 mill/uL (4.20-5.40); White Blood Cell (WBC) Count 3.99 10x3/uL (4.8-10.8)
[2024-09-26 19:08] LABS: INR-International Normal Ratio 1.2; Prothrombin Time 15.5 sec (12.0-14.7)
[2024-09-26 19:09] LABS: PTT 35.4 sec (22.9-36.1)
[2024-09-26 19:14] LABS: Troponin I 0.019 ng/mL (< 0.028)
[2024-09-26 19:23] LABS: ALT (SGPT) 9 U/L (Less than 34); AST (SGOT) 27 U/L (11-34); Albumin 2.7 g/dL (3.1-4.5); Alkaline Phosphatase 182 U/L (40-110); Anion Gap 11 mmol/L (10-20); BUN (Urea Nitrogen) 13 mg/dL (9.8-20.1); Bilirubin, Total 0.9 mg/dL (0.3-1.2); Calc. Creatinine Clearance 0 mL/min (70-130); Calcium 8.1 mg/dL (7.8-10.44); Carbon Dioxide 24 mmol/L (23-31); Chloride 106 mmol/L (98-107); Globulin 3.6 g/dL (2.4-3.5); Glucose 176 mg/dL (80-115); Potassium 3.0 mmol/L (3.5-5.1); Sodium 138 mmol/L (136-145)
[2024-09-26 20:18] LABS: Magnesium 1.8 mg/dL (1.6-2.6)
[2024-09-26] MEDS ORDERED: Ketorolac Tromethamine 30 MG (1 mL) VIAL IVP PRN (22:00)
[2024-09-26] MEDS ORDERED: Senokot S 8.6-50 MG TAB PO PRN (22:00)
[2024-09-26] MEDS ORDERED: Ondansetron PF 4 MG/2 ML Vial IVP PRN (22:00)
[2024-09-26] MEDS ORDERED: Calcium Carbonate 500 MG ChewTAB PO PRN (22:00)
[2024-09-26] MEDS ORDERED: hydrALAZINE 20 MG/ML VIAL SLOW IVP PRN (22:00)
[2024-09-26] MEDS ORDERED: Glucagon 1 MG/ML KIT IM PRN (22:27)
[2024-09-26] MEDS ORDERED: Dextrose 50% Abboject 50 ML SYRINGE SLOW IVP PRN (22:27)
[2024-09-27 00:06] VITALS: BMI 46.3
[2024-09-27 04:06] LABS: #Basophils 0.03 10x3/uL (0.0-0.2); #Eosinophils 0.21 10x3/uL (0.0-0.7); #Monocytes 0.19 10x3/uL (0.11-0.59); #Neutrophils 1.56 10x3/uL (1.40-6.50); %Basophils 1.1 % (0.0-1.0); %Eosinophils 7.5 % (0.0-10.0); %Lymphocytes 28.7 % (21.0-51.0); %Monocytes 6.8 % (0.0-10.0); %Neutrophils 55.9 % (42.0-75.0); Hematocrit 29.1 % (36.0-47.0); Hemoglobin 9.2 g/dL (12.0-16.0); Mean Corpuscular Hemoglobin 30.1 pg (27.0-31.0); Mean Corpuscular Volume 95.1 fL (78.0-98.0); Platelet Count 83 10x3/uL (130-400); Red Blood Cell (RBC) Count 3.06 mill/uL (4.20-5.40); White Blood Cell (WBC) Count 2.79 10x3/uL (4.8-10.8)
[2024-09-27 04:44] LABS: ALT (SGPT) 8 U/L (Less than 34); AST (SGOT) 26 U/L (11-34); Albumin 2.6 g/dL (3.1-4.5); Alkaline Phosphatase 177 U/L (40-110); Anion Gap 10 mmol/L (10-20); BUN (Urea Nitrogen) 14 mg/dL (9.8-20.1); Bilirubin, Total 0.9 mg/dL (0.3-1.2); Calc. Creatinine Clearance 87 mL/min (70-130); Calcium 8.0 mg/dL (7.8-10.44); Carbon Dioxide 25 mmol/L (23-31); Cardiac Risk 3.1 (Less than 4.5); Chloride 108 mmol/L (98-107); Cholesterol 120 mg/dl (< 200 Desired); Globulin 3.4 g/dL (2.4-3.5); Glucose 114 mg/dL (80-115); HDL Cholesterol 39 mg/dL (>60 Neg Risk); LDL Cholesterol, Calculated 70 mg/dL; Magnesium 1.9 mg/dL (1.6-2.6); Potassium 3.1 mmol/L (3.5-5.1); Sodium 140 mmol/L (136-145); Triglycerides 56 mg/dL (Less than 150)
[2024-09-27] MEDS: Pantoprazole 40 MG DR.TAB PO SCH (09:44)
[2024-09-27] MEDS: Aspirin 81 mg Enteric Coated Tablet PO SCH (09:44)
[2024-09-27] MEDS: Enoxaparin 40 MG (0.4 mL) SYRINGE SC SCH ×2 (09:45→21:47)
[2024-09-27] MEDS: Metoprolol Succinate XL 25 MG ER.TAB PO SCH (09:47)
[2024-09-27] MEDS: Acetaminophen 325 MG TAB PO PRN (09:55)
[2024-09-28 07:31] VITALS: TEMP 97.8
[2024-09-28 11:09] VITALS: BP 123/75
== END 2024-09-28 13:24 | disposition home or self-care (01) ==
LOC: ERS 16:36 → SUATTDRO 16:36 → 2SE 21:56
PROVIDERS: ADMIT Internal Medicine; ATTEND Hospitalist
PROC: B24BZZZ Ultrasonography of Heart with Aorta (ICD-10-PCS; principal; 2024-09-27)
DX: R29.818 Other symptoms and signs involving the nervous system (principal); R53.1 Weakness; R51.9 Headache, unspecified; R20.2 Paresthesia of skin; R26.89 Other abnormalities of gait and mobility; R73.9 Hyperglycemia, unspecified; G25.81 Restless legs syndrome; I13.0 Hypertensive heart and chronic kidney disease with heart failure and stage 1 through stage 4 chronic kidney disease, or unspecified chronic kidney disease; I50.30 Unspecified diastolic (congestive) heart failure; N18.9 Chronic kidney disease, unspecified; I48.91 Unspecified atrial fibrillation; E78.5 Hyperlipidemia, unspecified; E66.9 Obesity, unspecified; Z68.42 Body mass index [BMI] 45.0-49.9, adult; Z86.73 Personal history of transient ischemic attack (TIA), and cerebral infarction without residual deficits; Z88.1 Allergy status to other antibiotic agents; Z91.048 Other nonmedicinal substance allergy status; Z79.82 Long term (current) use of aspirin; Z79.02 Long term (current) use of antithrombotics/antiplatelets; Z79.899 Other long term (current) drug therapy
CPT/HCPCS: 70450; 70551; 80053 ×2; 80061; 82962 ×3; 83036; 83735 ×2; 84484; 85025 ×2; 85610; 85730; 93005; 93306; 96374; 96376; 97116; 97530; 99285; J1650 ×2; J1790; J7030; 36415; 36416; J1815

== ENCOUNTER 2024-10-24 08:52 | Outpatient (CLI) | payer OTHER, MEDICAID | END 2024-10-24 08:53 | disposition home or self-care (01) | LOC: BICULT 08:52 | PROVIDERS: ATTEND Internal Medicine Nephrology | DX: I12.9 Hypertensive chronic kidney disease with stage 1 through stage 4 chronic kidney disease, or unspecified chronic kidney disease (principal); N18.9 Chronic kidney disease, unspecified | CPT/HCPCS: 76770; 93975 ==

== ENCOUNTER 2024-11-09 17:19 | Emergency (ER) | payer OTHER, MEDICAID ==
[2024-11-09 18:33] LABS: ALT (SGPT) 10 U/L (Less than 34); AST (SGOT) 28 U/L (11-34); Albumin 2.8 g/dL (3.1-4.5); Alkaline Phosphatase 171 U/L (40-110); Anion Gap 13 mmol/L (10-20); BUN (Urea Nitrogen) 15 mg/dL (9.8-20.1); Bilirubin, Total 1.2 mg/dL (0.3-1.2); Calc. Creatinine Clearance 0 mL/min (70-130); Calcium 8.1 mg/dL (7.8-10.44); Carbon Dioxide 23 mmol/L (23-31); Chloride 105 mmol/L (98-107); Globulin 3.7 g/dL (2.4-3.5); Glucose 318 mg/dL (80-115); Potassium 3.9 mmol/L (3.5-5.1); Sodium 137 mmol/L (136-145)
[2024-11-09 18:41] LABS: #Basophils 0.04 10x3/uL (0.0-0.2); #Eosinophils 0.15 10x3/uL (0.0-0.7); #Monocytes 0.23 10x3/uL (0.11-0.59); #Neutrophils 2.40 10x3/uL (1.40-6.50); %Basophils 1.2 % (0.0-1.0); %Eosinophils 4.6 % (0.0-10.0); %Lymphocytes 13.8 % (21.0-51.0); %Monocytes 7.0 % (0.0-10.0); %Neutrophils 73.4 % (42.0-75.0); Hematocrit 29.5 % (36.0-47.0); Hemoglobin 9.5 g/dL (12.0-16.0); Mean Corpuscular Hemoglobin 30.8 pg (27.0-31.0); Mean Corpuscular Volume 95.8 fL (78.0-98.0); Platelet Count 76 10x3/uL (130-400); Red Blood Cell (RBC) Count 3.08 mill/uL (4.20-5.40); White Blood Cell (WBC) Count 3.27 10x3/uL (4.8-10.8)
[2024-11-09] MEDS ORDERED: Aspirin Chewable 81 MG TAB ONE (19:38)
== END 2024-11-09 22:47 | disposition home or self-care (01) ==
LOC: ERS 17:19
DX: R07.9 Chest pain, unspecified (principal); I11.0 Hypertensive heart disease with heart failure; I50.9 Heart failure, unspecified; E11.9 Type 2 diabetes mellitus without complications; I25.2 Old myocardial infarction; I48.91 Unspecified atrial fibrillation; Z86.73 Personal history of transient ischemic attack (TIA), and cerebral infarction without residual deficits; J44.9 Chronic obstructive pulmonary disease, unspecified; Z87.891 Personal history of nicotine dependence
CPT/HCPCS: 71045; 80053; 83880; 84484; 85025; 93005